=== PATIENT | male | born 1950 | race Caucasian/White ===

== ENCOUNTER 2017-05-12 20:43 | Observation (INO) | payer MEDICARE ==
[~2017-05-12] VITALS: Ht 172.7 cm; Wt 81.9 kg
[~2017-05-12 20:43] MED LIST: ASP81TEC PO; HYDR1TAB8 OP; METH4TAB PO; MILK1CAP2 PO; MULT-873 PO; Occuvite PO; Osteo Bi-Flex PO
--- OUTSIDE RECORDS SUMMARY | 2017-05-12 20:49 | XMS REPORT | Continuity of Care Document ---
Author Author [facility] Organization [facility] Address Unknown Phone Unavailable Allergies Active Description Code Type Severity Reaction Onset Reported/Identified Relationship to Patient Clinical Status Yes No Known Drug Allergies [id number] Drug Allergy Unknown N/A 03/29/2011 Medications There is no data. Problems Date Dx Coded Attending Type Code Diagnosis Diagnosed By 04/07/2014 LISA DEAN MD Ot 719.46 Procedures There is no data. Results There is no data. Encounters ACCT No. Visit Date/Time Discharge Status Pt. Type Provider Facility Loc./Unit Complaint [id number] 01/15/2014 12:59:00 01/15/2014 23:59:59 CLS Outpatient LISA DEAN MD [facility] RAD [id number] 05/12/2017 20:45:00 ACT Emergency PEPE OSBORNE, ADELSO Paulino [facility] ER POSS STROKE
[2017-05-12 21:16] LABS: BASOPHILS % (AUTO) 0 % (0-10); EOSINOPHILS # (AUTO) 0.2 10^3/uL (0.0-0.3); EOSINOPHILS % (AUTO) 2 % (0-10); HEMATOCRIT 41 % (40-54); HEMOGLOBIN 14.5 G/DL (13.3-17.7); LYMPHOCYTES # (AUTO) 3.1 X 10^3 (1.0-4.0); LYMPHOCYTES % (AUTO) 42 % (12-44); MEAN CORPUSCULAR HEMOGLOBIN 33 PG (25-34); MEAN CORPUSCULAR HGB CONC 35 G/DL (32-36); MEAN CORPUSCULAR VOLUME 94 FL (80-99); MEAN PLATELET VOLUME 9.2 FL (7.4-10.4); MONOCYTES # (AUTO) 0.8 X 10^3 (0.0-1.0); MONOCYTES % (AUTO) 11 % (0-12); NEUTROPHILS # (AUTO) 3.3 X 10^3 (1.8-7.8); NEUTROPHILS % (AUTO) 45 % (42-75); PLATELET COUNT 215 10^3/uL (130-400); RED BLOOD COUNT 4.38 10^6/uL (4.35-5.85); RED CELL DISTRIBUTION WIDTH 12.4 % (10.0-14.5); WHITE BLOOD COUNT 7.4 10^3/uL (4.3-11.0)
[2017-05-12 21:18] LABS: PROTHROMBIN TIME PATIENT 13.7 SEC (12.2-14.7)
[2017-05-12 21:20] LABS: FIBRIN DEGRADATION PRODUCTS 0.31 UG/ML (0.00-0.49)
--- NOTE | 2017-05-12 21:27 | ED Neurological Problem ---
General Chief Complaint: Neuro-Stroke Like Symptoms Stated Complaint: POSS STROKE Nursing Triage Note: PT REPORTS SLURRED SPEECH, L FACIAL NUMBNESS, AND FEELING LIKE HIS TONGUE IS SWELLING SINCE APPROX 1800 ON 05/11/17. PT REPORTS DIFFICULTY EATING. Nursing Sepsis Screen: No Definite Risk Source: patient Exam Limitations: no limitations History of Present Illness Date Seen by Provider: May 12, 2017 Time Seen by Provider: 20:55 Initial Comments Here with report of left-sided facial numbness and burning tongue weakness. Onset at 6 p.m. yesterday and symptoms continue. Denies weakness in his arms or legs. Has had a headache for the last 2 months. Had carotid artery ultrasound recently within the last week which showed good flow through the coronary artery and vertebral artery system. Does report some dizziness but is able to walk and stand without difficulty. Timing/Duration: 24 hours Severity: moderate Associated Symptoms: No confusion, No fever/chills, No muscle spasms, No nausea /vomiting, slurred speech, No trouble walking, weakness Allergies and Home Medications Allergies Coded Allergies: doxycycline (Verified Allergy, Unknown, 05/12/17) Home Medications Aspirin 81 Mg Tabec, 81 MG PO DAILY, (Reported) Hydrocodone Bit/Ibuprofen 1 Each Tablet, 1 EACH OP Q 4 - 6 HRS PRN, #14 Ref 0 Prescribed by: ADELSO CANTU on 04/25/12 1522 Methylprednisolone 4 Mg/Dose-Pack Tab.ds.pk, 0 PO UD, #1 Prescribed by: ADELSO CANTU on 04/25/12 1524 Multivitamins-Min/Fa/Ginkgo 1 Each Tablet, 1 TAB PO DAILY, (Reported) [Occuvite] , 1 TAB PO DAILY, (Reported) [Osteo Bi-Flex] , 1 TAB PO DAILY, (Reported) Constitutional: see HPI, No chills, No fever Eyes: No Symptoms Reported Ears, Nose, Mouth, Throat: see HPI, denies mouth pain, denies throat pain Respiratory: No cough, No short of breath Cardiovascular: no symptoms reported Gastrointestinal: no symptoms reported Genitourinary: no symptoms reported Musculoskeletal: see HPI Skin: no symptoms reported Psychiatric/Neurological: See HPI, Numbness, Weakness All Other Systems Reviewed Negative Unless Noted: Yes Past Jnkqlad-Sayeau-Lzyjou Hx Patient Social History Alcohol Use: Denies Use Recreational Drug Use: No Smoking Status: Never a Smoker 2nd Hand Smoke Exposure: No Recent Foreign Travel: No Contact w/Someone Who Travel: No Recent Infectious Disease Expo: No Recent Hopitalizations: No Immunizations Up To Date Date of Pneumonia Vaccine: Dec 10, 2011 Date of Influenza Vaccine: Dec 10, 2011 Seasonal Allergies Seasonal Allergies: No Surgeries History of Surgeries: Yes (L SHOULDER REPLACEMENT) Surgeries: Orthopedic Respiratory History of Respiratory Disorde: No Cardiovascular History of Cardiac Disorders: No (CLEAN HEART CATH IN 2011) Cardiac Disorders: Hypertension Neurological History of Neurological Disord: No Reproductive System Hx Reproductive Disorders: No Genitourinary History of Genitourinary Disor: No Gastrointestinal History of Gastrointestinal Di: No Musculoskeletal History of Musculoskeletal Dis: No Musculoskeletal Disorders: Degenerate Disk Disease Endocrine History of Endocrine Disorders: Yes Endocrine Disorders: Hypothyroidsim Cancer History of Cancer: No Psychosocial History of Psychiatric Problem: No Integumentary History of Skin or Integumenta: No Blood Transfusions History of Blood Disorders: No Adverse Reaction to a Blood Tr: No Reviewed Nursing Assessment Reviewed/Agree w Nursing PMH: Yes Family Medical History Significant Family History: No Pertinent Family Hx Physical Exam Vital Signs Vital Sign - Last 12Hours 05/12/17 20:43 Temp 97.2 Pulse 86 Resp 22 B/P (MAP) 145/87 (106) Pulse Ox 98 O2 Delivery Room Air Capillary Refill : Less Than 3 Seconds General Appearance: WD/WN, no apparent distress HEENT: PERRL/EOMI, TMs normal, pharynx normal Neck: full range of motion, supple Respiratory: lungs clear, normal breath sounds Cardiovascular: regular rate, rhythm, no murmur Gastrointestinal: non tender, soft Back: normal inspection, no CVA tenderness, no vertebral tenderness Extremities: non-tender, normal inspection Neurologic/Psychiatric: alert, oriented x 3 Crainal Nerves: normal hearing, facial droop (mild left sided), tongue deviation to R Coordination/Gait: normal finger to nose, normal gait Motor/Sensory: no motor deficit, no sensory deficit, no pronator drift Skin: normal color, warm/dry Stroke NIH Stroke Scale Assessment Level of Consciousness: 0=Alert (0), Level of Consciousness-Questions: 0= Answers both month/age (0), LOC Commands: 0=Performs both tasks (0), Visual Figueroa: 0=No visual loss (0), Facial Movement (Facial Paresis): 1=Minor paralysis (1), Motor Function-Arms Right: 0=No drift (0), Motor Function-Arms Left: 0=No drift (0), Motor Function-Legs Right: 0=No drift (0), Motor Function- Legs Left: 0=No drift (0), Limb Ataxia: 0=Absent (0), Sensory: 0=Normal:no loss (0), Best Language: 0=No aphasia (0), Dysarthria: 1=Mild to moderate loss (1), Extinction & Inattention: 0=No abnormality (0), Total: Progress/Results/Core Measures Results/Orders Lab Results Laboratory Tests Test 05/12/17 20:53 05/12/17 21:12 05/12/17 22:45 Range/Units White Blood Count 7.4 4.3-11.0 10^3/uL Red Blood Count 4.38 4.35-5.85 10^6/uL Hemoglobin 14.5 13.3-17.7 G/DL Hematocrit 41 40-54 % Mean Corpuscular Volume 94 80-99 FL Mean Corpuscular Hemoglobin 33 25-34 PG Mean Corpuscular Hemoglobin Concent 35 32-36 G/DL Red Cell Distribution Width 12.4 10.0-14.5 % Platelet Count 215 130-400 10^3/uL Mean Platelet Volume 9.2 7.4-10.4 FL Neutrophils (%) (Auto) 45 42-75 % Lymphocytes (%) (Auto) 42 12-44 % Monocytes (%) (Auto) 11 0-12 % Eosinophils (%) (Auto) 2 0-10 % Basophils (%) (Auto) 0 0-10 % Neutrophils # (Auto) 3.3 1.8-7.8 X 10^3 Lymphocytes # (Auto) 3.1 1.0-4.0 X 10^3 Monocytes # (Auto) 0.8 0.0-1.0 X 10^3 Eosinophils # (Auto) 0.2 0.0-0.3 10^3/uL Basophils # (Auto) 0.0 0.0-0.1 10^3/uL Prothrombin Time 13.7 12.2-14.7 SEC INR Comment 1.0 0.8-1.4 Activated Partial Thromboplast Time 27 24-35 SEC D-Dimer 0.31 0.00-0.49 UG/ML Sodium Level 138 135-145 MMOL/L Potassium Level 4.0 3.6-5.0 MMOL/L Chloride Level 106 98-107 MMOL/L Carbon Dioxide Level 20 L 21-32 MMOL/L Anion Gap 12 5-14 MMOL/L Blood Urea Nitrogen 18 7-18 MG/DL Creatinine 1.00 0.60-1.30 MG/DL Estimat Glomerular Filtration Rate > 60 BUN/Creatinine Ratio 18 Glucose Level 124 H 70-105 MG/DL Calcium Level 9.2 8.5-10.1 MG/DL Total Bilirubin 0.3 0.1-1.0 MG/DL Aspartate Amino Transf (AST/SGOT) 56 H 5-34 U/L Alanine Aminotransferase (ALT/SGPT) 128 H 0-55 U/L Alkaline Phosphatase 65 40-136 U/L Troponin I < 0.30 <0.30 NG/ML Total Protein 7.3 6.4-8.2 GM/DL Albumin 4.2 3.2-4.5 GM/DL Glucometer 118 H 70-110 MG/DL Urine Color YELLOW Urine Clarity CLEAR Urine pH 6 5-9 Urine Specific [place] 1.020 1.016-1.022 Urine Protein NEGATIVE NEGATIVE Urine Glucose (UA) NEGATIVE NEGATIVE Urine Ketones NEGATIVE NEGATIVE Urine Nitrite NEGATIVE NEGATIVE Urine Bilirubin NEGATIVE NEGATIVE Urine Urobilinogen NORMAL NORMAL MG/DL Urine Leukocyte Esterase NEGATIVE NEGATIVE Urine RBC (Auto) NEGATIVE NEGATIVE Urine RBC NONE /HPF Urine WBC 0-2 /HPF Urine Squamous Epithelial Cells 2-5 /HPF Urine Renal Epithelial Cells NONE /HPF Urine Crystals NONE /LPF Urine Bacteria NEGATIVE /HPF Urine Casts PRESENT /LPF Urine Hyaline Casts RARE /LPF Urine Mucus SMALL H /LPF Urine Culture Indicated NO My Orders Orders - ADELSO CANTU MD Cbc With Automated Diff (05/12/17 21:03) Protime With Inr (05/12/17 21:03) Partial Thromboplastin Time (05/12/17 21:03) Comprehensive Metabolic Panel (05/12/17 21:03) Fibrin Degradation Products (05/12/17 21:03) Troponin I (05/12/17 21:03) Ua Culture If Indicated (05/12/17 21:03) Chest 1 View, Ap/Pa Only (05/12/17 21:03) Ekg Tracing (05/12/17 21:03) Nothing By Mouth (05/13/17 Breakfast) Accucheck Stat ONCE (05/12/17 21:03) Saline Lock/Iv-Start (05/12/17 21:03) Vital Signs - Stroke Q15M (05/12/17 21:03) Ct Head Wo-R/O Stroke (05/12/17 21:03) O2 (05/12/17 21:03) Intake & Output 06,14,22 (05/12/17 21:03) Monitor-Rhythm Ecg Trace Only (05/12/17 21:03) Dysphagia Screening Tool (05/12/17 21:03) Vital Signs/I&O Vital Sign - Last 12Hours 05/12/17 20:43 Temp 97.2 Pulse 86 Resp 22 B/P (MAP) 145/87 (106) Pulse Ox 98 O2 Delivery Room Air Blood Pressure Mean: 106 Point of Care Testing Finger Stick Blood Glucose: 118 Blood Glucose Action Taken: physician notified Progress Note : Progress Note Seen and evaluated. Initial stroke screen shows core up to with very mild left facial droop and slightly slurred speech. Patient outside of TPA window tPA not indicated due to time frame. This was discussed with the patient and family who agree. IV, labs, EKG, chest x-ray, CT head ordered. Monitor patient. 2312: Labs, CT and evaluation reviewed. Patient to be admitted for further evaluation including MRI. He has already had carotid ultrasound and patient has results of that with him. He did pass dysphagia screen per nursing. Admit, observation status. Patient and family agree with plan. ECG Initial ECG Impression Date: May 12, 2017 Initial ECG Impression Time: 21:09 Initial ECG Rate: 77 Initial ECG Rhythm: Normal Sinus Comment Sinus rhythm with borderline T-wave abnormalities. No evidence of ST elevation HI. No previous available for comparison. Interpreted by me. Diagnostic Imaging Diagonstic Imaging: Xray Plain Films/CT/US/NM/MRI: chest Comments NAME: TOMASZ [facility]EN [facility] REC#: [id number] PT STATUS: REG ER : 1950 PHYSICIAN: ADELSO CANTU MD ADMIT DATE: 05/12/17/ER Signed Date of Exam: 05/12/17 CHEST 1 VIEW, AP/PA ONLY EXAMINATION: Portable erect AP chest at 0918 PM INDICATION: Slurred speech The heart size is within normal limits and stable when compared to 04/25/2012. The minimal scar formation in the left lung base seen previously is again evident and no different. There is no sign of failure, pneumonia or of a pleural effusion to indicate an acute abnormality. The mediastinum is not widened. The osseous structures are intact. The total shoulder prosthesis on the left seen previously is partially visualized on this exam. IMPRESSION: There is no evidence for an acute cardiopulmonary abnormality. Dictated by: Dictated on workstation # [id number] Dict: 05/12/172124 Trans: 05/12/172140 Interpreted by: KARTHIK ALVAREZ MD Electronically signed by: KARTHIK ALVAREZ MD 05/12/172140 Diagonstic Imaging: CT Plain Films/CT/US/NM/MRI: head Comments NAME: TOMASZ ROSEN [facility] REC#: [id number] PT STATUS: REG ER : 1950 PHYSICIAN: ADELSO CANTU MD ADMIT DATE: 05/12/17/ER Signed Date of Exam: 05/12/17 CT HEAD WO-R/O STROKE INDICATION: Slurred speech. EXAMINATION: CT of the head without contrast. Contiguous axial sections were taken through the skull. FINDINGS: There is no mass, shift of the midline or hemorrhage to suggest an acute intracranial abnormality. The ventricles are not abnormally dilated and stable in size when compared to the prior exam of 04/25/2012. The vague areas of low density and the periventricular white matter seen on the prior study are again evident and do not seem to have changed significantly. These findings are nonspecific but may be related to encephalomalacia from microvascular ischemia. There is also cortical atrophy present. The degree of atrophy is consistent with the patient's age. The bone windows show no sign of a fracture or of a destructive lesion. The orbits are symmetrical and within normal limits. The sinuses, where visualized, are clear. IMPRESSION: 1. There is no evidence for an acute intracranial abnormality. 2. If clinical concern regarding an underlying abnormality persists, then MRI would be recommended for further study. Dictated by: Dictated on workstation # [id number] Dict: 05/12/172122 Trans: 05/12/172141 Interpreted by: KARTHIK ALVAREZ MD Electronically signed by: KARTHIK ALVAREZ MD 05/12/172141 Departure Communication (Admissions) Time/Spoke to Admitting Phy: 23:12 Impression Impression: Primary Impression: Cerebrovascular accident due to cerebral artery occlusion Disposition: ADMITTED INPATIENT Condition: Stable Admissions Decision to Admit Reason: Admit from ER (General) Decision to Admit/Date: May 12, 2017 Time/Decision to Admit Time: 23:12 Departure-Patient Inst. Referrals: LISA DEAN MD (PCP/Family) Primary Care Physician ADELSO CANTU MD May 12, 2017 21:27
--- NOTE | 2017-05-12 21:32 | Diagnostic Imaging Report ---
EXAMINATION: Portable erect AP chest at 0918 PM INDICATION: Slurred speech The heart size is within normal limits and stable when compared to 04/25/2012. The minimal scar formation in the left lung base seen previously is again evident and no different. There is no sign of failure, pneumonia or of a pleural effusion to indicate an acute abnormality. The mediastinum is not widened. The osseous structures are intact. The total shoulder prosthesis on the left seen previously is partially visualized on this exam. IMPRESSION: There is no evidence for an acute cardiopulmonary abnormality. Dictated by: Dictated on workstation # [id number]
--- NOTE | 2017-05-12 21:39 | Diagnostic Imaging Report ---
INDICATION: Slurred speech. EXAMINATION: CT of the head without contrast. Contiguous axial sections were taken through the skull. FINDINGS: There is no mass, shift of the midline or hemorrhage to suggest an acute intracranial abnormality. The ventricles are not abnormally dilated and stable in size when compared to the prior exam of 04/25/2012. The vague areas of low density and the periventricular white matter seen on the prior study are again evident and do not seem to have changed significantly. These findings are nonspecific but may be related to encephalomalacia from microvascular ischemia. There is also cortical atrophy present. The degree of atrophy is consistent with the patient's age. The bone windows show no sign of a fracture or of a destructive lesion. The orbits are symmetrical and within normal limits. The sinuses, where visualized, are clear. IMPRESSION: 1. There is no evidence for an acute intracranial abnormality. 2. If clinical concern regarding an underlying abnormality persists, then MRI would be recommended for further study. Dictated by: Dictated on workstation # [id number]
[2017-05-12 21:44] LABS: ALANINE AMINOTRANSFERASE 128 U/L (0-55); ALBUMIN 4.2 GM/DL (3.2-4.5); ALKALINE PHOSPHATASE 65 U/L (40-136); BILIRUBIN,TOTAL 0.3 MG/DL (0.1-1.0); BUN/CREATININE RATIO 18; CALCIUM 9.2 MG/DL (8.5-10.1); CARBON DIOXIDE 20 MMOL/L (21-32); CHLORIDE 106 MMOL/L (98-107); GFR ESTIMATED > 60; GLUCOSE 124 MG/DL (70-105); SODIUM 138 MMOL/L (135-145); TOTAL PROTEIN 7.3 GM/DL (6.4-8.2)
[2017-05-12 23:04] LABS: BILIRUBIN,URINE NEGATIVE (NEGATIVE); CLARITY,URINE CLEAR; COLOR,URINE YELLOW; GLUCOSE, URINE (UA) NEGATIVE (NEGATIVE); KETONES,URINE NEGATIVE (NEGATIVE); LEUKOCYTE ESTERASE ,URINE NEGATIVE (NEGATIVE); NITRITE,URINE NEGATIVE (NEGATIVE); PH,URINE 6 (5-9); PROTEIN,URINE NEGATIVE (NEGATIVE); UROBILINOGEN,URINE NORMAL (NORMAL)
[2017-05-12 23:05] LABS: BACTERIA,URINE NEGATIVE /HPF; HYALINE CASTS, URINE RARE /LPF; WBC,URINE 0-2 /HPF
--- OUTSIDE RECORDS SUMMARY | 2017-05-12 23:31 | XMS REPORT | Continuity of Care Document ---
Author Author [facility] Organization [facility] Address Unknown Phone Unavailable Allergies Active Description Code Type Severity Reaction Onset Reported/Identified Relationship to Patient Clinical Status Yes No Known Drug Allergies [id number] Drug Allergy Unknown N/A 03/29/2011 Yes doxycycline [id number] Drug Allergy Unknown N/A 05/12/2017 Medications There is no data. Problems Date Dx Coded Attending Type Code Diagnosis Diagnosed By 04/07/2014 DIANNE OSBORNE, LISA White Ot 719.46 Procedures There is no data. Results Test Result Range Complete blood count (CBC) with automated white blood cell (WBC) differential - 05/12/17 20:53 Blood leukocytes automated count (number/volume) 7.4 10*3/uL 4.3-11.0 Blood erythrocytes automated count (number/volume) 4.38 10*6/uL 4.35-5.85 Venous blood hemoglobin measurement (mass/volume) 14.5 g/dL 13.3-17.7 Blood hematocrit (volume fraction) 41 % 40-54 Automated erythrocyte mean corpuscular volume 94 [foz_us] 80-99 Automated erythrocyte mean corpuscular hemoglobin (mass per erythrocyte) 33 pg 25-34 Automated erythrocyte mean corpuscular hemoglobin concentration measurement ( mass/volume) 35 g/dL 32-36 Automated erythrocyte distribution width ratio 12.4 % 10.0-14.5 Automated blood platelet count (count/volume) 215 10*3/uL 130-400 Automated blood platelet mean volume measurement 9.2 [foz_us] 7.4-10.4 Automated blood neutrophils/100 leukocytes 45 % 42-75 Automated blood lymphocytes/100 leukocytes 42 % 12-44 Blood monocytes/100 leukocytes 11 % 0-12 Automated blood eosinophils/100 leukocytes 2 % 0-10 Automated blood basophils/100 leukocytes 0 % 0-10 Blood neutrophils automated count (number/volume) 3.3 10*3 1.8-7.8 Blood lymphocytes automated count (number/volume) 3.1 10*3 1.0-4.0 Blood monocytes automated count (number/volume) 0.8 10*3 0.0-1.0 Automated eosinophil count 0.2 10*3/uL 0.0-0.3 Automated blood basophil count (count/volume) 0.0 10*3/uL 0.0-0.1 PT panel in platelet poor plasma by coagulation assay - 05/12/17 20:53 Prothrombin time (PT) in platelet poor plasma by coagulation assay 13.7 s 12.2-14.7 INR in platelet poor plasma or blood by coagulation assay 1.0 0.8-1.4 Activated partial thromboplastin time (aPTT) in platelet poor plasma bycoagulation assay - 05/12/17 20:53 Activated partial thromboplastin time (aPTT) in platelet poor plasma bycoagulation assay 27 s 24-35 Fibrin D-dimer FEU measurement in platelet poor plasma (mass/volume) - 20:53 Fibrin D-dimer FEU measurement in platelet poor plasma (mass/volume) 0.31 ug/mL 0.00-0.49 Comprehensive metabolic panel - 05/12/17 20:53 Serum or plasma sodium measurement (moles/volume) 138 mmol/L 135-145 Serum or plasma potassium measurement (moles/volume) 4.0 mmol/L 3.6-5.0 Serum or plasma chloride measurement (moles/volume) 106 mmol/L 98-107 Carbon dioxide 20 mmol/L 21-32 Serum or plasma anion gap determination (moles/volume) 12 mmol/L 5-14 Serum or plasma urea nitrogen measurement (mass/volume) 18 mg/dL 7-18 Serum or plasma creatinine measurement (mass/volume) 1.00 mg/dL 0.60-1.30 Serum or plasma urea nitrogen/creatinine mass ratio 18 NRG Serum or plasma creatinine measurement with calculation of estimated glomerular filtration rate > NRG Serum or plasma glucose measurement (mass/volume) 124 mg/dL 70-105 Serum or plasma calcium measurement (mass/volume) 9.2 mg/dL 8.5-10.1 Serum or plasma total bilirubin measurement (mass/volume) 0.3 mg/dL 0.1-1.0 Serum or plasma alkaline phosphatase measurement (enzymatic activity/volume) 65 U/L 40-136 Serum or plasma aspartate aminotransferase measurement (enzymatic activity/ volume) 56 U/L 5-34 Serum or plasma alanine aminotransferase measurement (enzymatic activity/volume ) 128 U/L 0-55 Serum or plasma protein measurement (mass/volume) 7.3 g/dL 6.4-8.2 Serum or plasma albumin measurement (mass/volume) 4.2 g/dL 3.2-4.5 Serum or plasma troponin i.cardiac measurement (mass/volume) - 05/12/17 20:53 Serum or plasma troponin i.cardiac measurement (mass/volume) < ng/ mL <0.30 Capillary blood glucose measurement by glucometer (mass/volume) - 05/12/17 21: 12 Capillary blood glucose measurement by glucometer (mass/volume) 118 mg/dL 70-110 Complete urinalysis with reflex to culture - 05/12/17 22:45 Urine color determination YELLOW NRG Urine clarity determination CLEAR NRG Urine pH measurement by test strip 6 5-9 Specific gravity of urine by test strip 1.020 1.016- 1.022 Urine protein assay by test strip, semi-quantitative NEGATIVE NEGATIVE Urine glucose detection by automated test strip NEGATIVE NEGATIVE Erythrocytes detection in urine sediment by light microscopy NEGATIVE NEGATIVE Urine ketones detection by automated test strip NEGATIVE NEGATIVE Urine nitrite detection by test strip NEGATIVE NEGATIVE Urine total bilirubin detection by test strip NEGATIVE NEGATIVE Urine urobilinogen measurement by automated test strip (mass/volume) NORMAL NORMAL Urine leukocyte esterase detection by dipstick NEGATIVE NEGATIVE Automated urine sediment erythrocyte count by microscopy (number/high power field) NONE NRG Automated urine sediment leukocyte count by microscopy (number/high power field ) [HPF] NRG Bacteria detection in urine sediment by light microscopy NEGATIVE NRG Squamous epithelial cells detection in urine sediment by light microscopy 2-5 NRG Crystals detection in urine sediment by light microscopy NONE NRG Casts detection in urine sediment by light microscopy PRESENT NRG Mucus detection in urine sediment by light microscopy SMALL NRG Complete urinalysis with reflex to culture NO NRG Hyaline casts detection in urine sediment by light microscopy RARE NRG Renal epithelial cells detection in urine sediment by light microscopy NONE NRG Encounters ACCT No. Visit Date/Time Discharge Status Pt. Type Provider Facility Loc./Unit Complaint [id number] 01/15/2014 12:59:00 01/15/2014 23:59:59 CLS Outpatient DIANNE OSBORNE, LISA White [facility] [id number] 05/12/2017 23:16:00 ACT Inpatient KAYLIE COSTA DO [facility] 4TH CVA WITH LEFT FACIAL INVOLVEMENT
[2017-05-13 00:15] VITALS: BP 124/74
[2017-05-13] MEDS ORDERED: ONDANSETRON 4 MG/2 ML (SDV) Z0FRAN IVP PRN (01:30)
[2017-05-13] MEDS ORDERED: NS IV 1000 ML 1,000 ML IV SCH (01:30)
[2017-05-13 03:57] VITALS: BP 119/64
[2017-05-13 06:26] LABS: BASOPHILS % (AUTO) 1 % (0-10); EOSINOPHILS # (AUTO) 0.2 10^3/uL (0.0-0.3); EOSINOPHILS % (AUTO) 3 % (0-10); HEMATOCRIT 40 % (40-54); HEMOGLOBIN 14.1 G/DL (13.3-17.7); LYMPHOCYTES # (AUTO) 2.7 X 10^3 (1.0-4.0); LYMPHOCYTES % (AUTO) 41 % (12-44); MEAN CORPUSCULAR HEMOGLOBIN 34 PG (25-34); MEAN CORPUSCULAR HGB CONC 35 G/DL (32-36); MEAN CORPUSCULAR VOLUME 95 FL (80-99); MEAN PLATELET VOLUME 9.1 FL (7.4-10.4); MONOCYTES # (AUTO) 0.7 X 10^3 (0.0-1.0); MONOCYTES % (AUTO) 10 % (0-12); NEUTROPHILS % (AUTO) 45 % (42-75); PLATELET COUNT 192 10^3/uL (130-400); RED CELL DISTRIBUTION WIDTH 12.4 % (10.0-14.5); WHITE BLOOD COUNT 6.5 10^3/uL (4.3-11.0)
[2017-05-13] MEDS ORDERED: INFLUENZA TRIvalent 2017-2018 0.5 ML/45 MCG SYR IM ONE (07:00)
[2017-05-13 07:05] LABS: ALANINE AMINOTRANSFERASE 115 U/L (0-55); ALBUMIN 3.9 GM/DL (3.2-4.5); ALKALINE PHOSPHATASE 57 U/L (40-136); BILIRUBIN,TOTAL 0.5 MG/DL (0.1-1.0); BUN/CREATININE RATIO 20; CALCIUM 8.9 MG/DL (8.5-10.1); CARBON DIOXIDE 21 MMOL/L (21-32); CHLORIDE 106 MMOL/L (98-107); CREATININE SERUM 0.85 MG/DL (0.60-1.30); GFR ESTIMATED > 60; GLUCOSE 97 MG/DL (70-105); POTASSIUM 4.5 MMOL/L (3.6-5.0); SODIUM 138 MMOL/L (135-145); TOTAL PROTEIN 6.7 GM/DL (6.4-8.2)
[2017-05-13 08:00] VITALS: BP 121/71
[2017-05-13] MEDS ORDERED: ASPI-983 PO (09:16)
[2017-05-13] MEDS ORDERED: LEVO50TA6 PO (09:16)
[2017-05-13] MEDS ORDERED: LISI10TA2 PO (09:16)
[2017-05-13] MEDS ORDERED: TIZA2TAB3 PO (09:16)
[2017-05-13] MEDS ORDERED: HYDR-3820 PO (09:25)
[2017-05-13] MEDS ORDERED: CYCL10TA9 PO (09:25)
--- NOTE | 2017-05-13 10:51 | Diagnostic Imaging Report ---
PROCEDURE: MR imaging of the brain without contrast. TECHNIQUE: Multiplanar, multisequence MR imaging of the brain was performed without contrast. INDICATION: Headaches. COMPARISON: CT head without contrast 05/12/2017. FINDINGS: Moderate generalized cerebral and cerebellar parenchymal volume loss. Moderate confluent periventricular T2 hyperintensities are greatest in the frontal lobes bilaterally. No other abnormal intracranial signal, restricted water diffusion, or hemosiderin deposition. Normal morphology including the major midline structures, sella, cerebellopontine angle, and posterior fossa. The orbits are unremarkable on this non-dedicated exam. Normal intracranial flow voids. No hydrocephalus or extra-axial fluid collections. The paranasal sinuses and mastoids are clear. Normal bone marrow signal. IMPRESSION: 1. Age-appropriate generalized cerebral and cerebellar parenchymal volume loss. 2. Confluent nonspecific T2 hyperintensities most likely representing chronic small vessel ischemic change. 3. No acute intracranial MRI findings. Dictated by: Dictated on workstation # [id number]
[2017-05-13 12:00] VITALS: BP 121/69
--- NOTE | 2017-05-13 12:46 | ST Dysphagia Evaluation ---
Speech Evaluation-General Medical Diagnosis Suspected CVA Onset Date: May 12, 2017 Therapy Diagnosis Therapy Diagnosis: Mild Oral Dysphagia Precautions Precautions/Isolations: Standard Precautions Referral Referring Physician: Dr. Holly Schwab Reason for Referral: Evaluation/Treatment Clinical Bedside Swallowing Evaluation Medical History Pertinent Medical History: HTN, Hypothroidism Current History The patient reported slight slurring of speech and drooling from the left side of his face on Friday, May 12, 2017. Reviewed History: Yes Speech PLF/Current-Dysphagia Prior Level of Function The patient denied prior challenges with swallowing, stating he consumes a regular diet with thin liquids at home without any signs/symptoms of aspiration. Subjective The patient was seated upright in bed, with his at bedside. The patient greeted the clinician appropriately and was agreeable to participation in the dysphagia evaluation. Cognitive Status Patient Orientation: Person, Place, Time, Situation Oral Motor Skills Dentition: Natural Denture Type: Full- Upper & Lower Current Food Consistancy: Regular, Thin Liquids Ability to Follow Directions: Excellent Oral Expression Ability: No Impairment Voice Voice Phonatory-Based Quality: Normal Voice Pitch: Normal Voice Loudness: Normal Face Facial Symmetry: Asymmetrical (Minimally, asymmetrical (left droop)) Oral-Facial Assessment Oral-Facial Dentition: Normal Labial Seal Description: Droops Left Smile: Droops Left Puff Cheeks: Reduced Strength (Left) Lingual Protrusion: Abnormal (Left deviation.) Lingual ROM: Abnormal (Reduced left lateral ROM (minimal)) Lingual Strength: Abnormal (Minimally reduced left lingual strength.) Pharynx Velopharyngeal Move.: Normal Volitional Dry Swallow: Yes Voluntary Cough: Yes Can Clear Throat Volitionally: Yes Productive Cough: Yes Productive Throat Clear: Yes Dysphagia Evaluation Consistencies Presented: Regular, Thin Liquid, Pureed Oral Phase: Left Pocketing Mild left oral pocketing was noted with puree and solid consistencies. The patient was able to clear the residue with a subsequent thin liquid wash and lingual sweep. No pharyngeal impairments were noted throughout the evaluation. - No signs/symptoms of aspiration were demonstrated with multiple boluses of thin liquid, puree, and solid. The patient's vocal quality remained clear throughout all trials. Dietary Recommendations: Regular Liquid Recommendations: Thin Swallowing Precautions: Alternate Liquids/Solids, Pocketing, Small Bites and Sips, Sitting Upright 90 Degrees, Left Tongue Sweep Dysphagia Evaluation Summary The patient demonstrated mild oral dysphagia characterized by reduced lingual strength and range of motion. Speech-Plan Treatment Plan Speech Therapy Treatment Plan: Discontinue ST Evaluation, only. Skilled services not warranted. Frequency: 1 time per week Estimated Hrs Per Day: Other Rehab Potential: Good Safety Risks/Education Teaching Recipient: Patient, Significant Other Teaching Methods: Discussion Response to Teaching: Verbalize Understanding Education Topics Provided: Rseults, Recommendations, Signs/Symptoms of Aspiration, Swallowing Strategies Time Speech Therapy Time In: 09:15 Speech Therapy Time Out: 09:30 Total Billed Time: 15 Billed Treatment Time 1, DYSEVS Speech GCodes Complexity Level Test(s)/Tool Used to Determine: Level of Assistance Scale Functional Limitation-Current Current: MELINDAALCNEVIN Modifier: CI Functional Limitation-Goal Goal: SWALGOAL Modifier: CI Functional Limitation-D/C Discharge: [facility] Modifier: CI PRAMOD HUITRON May 13, 2017 12:45
[2017-05-13] MEDS ORDERED: ASPIRIN 325 MG (5 GR) TABLET PO SCH (13:15)
--- NOTE | 2017-05-13 13:40 | Consultation-Cardiology ---
HPI-Cardiology Cardiology Consultation: Date of Consultation 05/13/17 Date of Admission Attending Physician Holly Schwab DO Admitting Physician Hank Ken MD Consulting Physician Valentino MUNGUIA MD HPI: Time Seen by Provider: 14:20 Chief Complaint: dizziness, tachycardia This is a 66 year old gentleman who has possible history of TIA and HTN. He presents with stroke like symptoms which resolved. He has been complaining of dizziness, headache and fast heart beating. he denies chest pain, shortness of breath, syncope or near syncope. He had a Coronary angiography a few years ago which was normal according to the patient. Review of Systems-Cardiology Review of Systems Constitutional: No As described under HPI, No no symptoms reported, No chills, No fever, lightheadedness, No malaise, No tiredness, No weight loss, No weight gain, No other Eyes: No As described under HPI, No no symptoms reported, No blindness, No blurred vision, No contact lenses, No drainage, No decreased acuity, No foreign body sensation, No glasses, No inflammation, No pain, No photophobia, No previous injury, No shadows, No tunnel vision, No other, No vision change Ears/Nose/Throat: No As described under HPI, No no symptoms reported, No chronic hearing loss, No epistaxis, No ear discharge, No ear pain, No loose teeth, No mouth pain, No mouth swelling, No nasal drainage, No nose pain, No recent hearing loss, No throat pain, No throat swelling, No ulcerations, No other Respiratory: No no symptoms reported, No As described under HPI, No cough, No orthopnea, No shortness of breath, No SOB with excertion, No SOB at rest, No stridor, No wheezing, No other Cardiovascular: lightheadedness, palpitations Gastrointestinal: No no symptoms reported, No As described under HPI, No abdomen distended, No abdominal pain, No blood streaked bowels, No constipation , No diarrhea, No difficulty swallowing, No nausea, No poor appetite, No poor fluid intake, No rectal bleeding, No vomiting, No other, No nausea/vomiting/ diarrhea, No stool coloration changes Genitourinary: No no symptoms reported, No As described under HPI, No burning, No dysuria, No discharge, No frequency, No flank pain, No hematuria, No incontinence, No pain, No urgency, No other, No urine frequency changes, No urine coloration changes Musculoskeletal: No no symptoms reported, No As describe under HPI, No back pain, No gout, No joint pain, No joint swelling, No muscle pain, No muscle stiffness, No neck pain, No other Skin: No no symptoms reported, No As described under HPI, No change in color, No change in hair/nails, No dryness, No lesions, No lumps, No rash, No other, No skin related problems, No ulcerations, No rash on exposed areas, No ulcerations on exposed areas Psychiatric/Neurological: As described under HPI All Other Systems Reviewed Negative Unless Noted: Yes PTY-Ehobvi-Ccbbjq Hx Patient Social History Alcohol Use: Denies Use Recreational Drug Use: No Smoking Status: Never a Smoker 2nd Hand Smoke Exposure: No Recent Foreign Travel: No Recent Infectious Disease Expo: Yes (sinus and ear infection, finished meds 3 days ago) Hospitalization with Isolation: Denies Physical Abuse Screen: No Sexual Abuse: No Immunizations Up To Date Date of Pneumonia Vaccine: Dec 10, 2011 Date of Influenza Vaccine: Dec 10, 2011 Past Medical History PMH As described under Assessment. Allergies and Home Medications Allergies Coded Allergies: doxycycline (Verified Allergy, Unknown, 05/12/17) Home Medications Aspirin 81 Mg Tablet.dr, 81 MG PO DAILY, (Reported) Atorvastatin Calcium 40 Mg Tablet, 40 MG PO HS, #30 Prescribed by: GRETCHEN SELBY on 05/13/17 1418 Cyclobenzaprine HCl 10 Mg Tablet, 10 MG PO TID PRN for MUSCLE SPASMS, (Reported) Hydrocodone/Acetaminophen 1 Each Tablet, 1 TAB PO BID PRN for PAIN-MODERATE, ( Reported) Levothyroxine Sodium 50 Mcg Tablet, 50 MCG PO DAILY, (Reported) Lisinopril 10 Mg Tablet, 10 MG PO BID, (Reported) Tizanidine HCl 2 Mg Tablet, 2-4 MG PO HS PRN for MUSCLE SPASMS/SLEEP, (Reported) Physical Exam-Cardiology Physical Exam Vital Signs/I&O Vital Sign - Last 12Hours 05/13/17 05/13/17 05/13/17 05/13/17 03:57 08:00 08:00 12:00 Temp 99.7 97.8 97.1 Pulse 54 79 77 Resp B/P (MAP) 119/64 (82) 121/71 (88) 121/69 (86) Pulse Ox 96 96 93 95 O2 Delivery Room Air Room Air Room Air Room Air 05/13/17 13:26 Temp 97.1 Capillary Refill : Less Than 3 Seconds Constitutional: appears stated age, No apparent distress, well-developed, well- nourished HEENT: PERRL, No discharge, hearing is well preserved, oral hygience is good, No ulceration, No xanthelasmas are seen Neck: No carotid bruit, carotid pulses are 2 + bilaterally Respiratory: chest is bilaterally symmetric, lungs clear to percussion, lungs clear to auscultation Cardiovascular: regular rate-rhythm, No irregularly irregular, No extra beats, No parasternal heave is noted, No JVD, No edema, No bradycardia, No tachycardia , No point of maximal impulse, No cardiac thrills are palpable, S1 and S2, No gallop/S3, No gallop/S4, No diastolic murmur, No systolic murmur, No friction rub, No click, No other Gastrointestinal: No tender, No soft, No round, No distended, No pulsatile mass , No organomegaly, No guarding, No rebound, No tenderness, No hernia, No mass, No audible bowel sounds, No abnormal bowel sounds, No abdominal bruits, No spleenomegaly, No other Rectal: deferred Extremities: No normal range of motion, No non-tender, No normal inspection, No pedal edema, No calf tenderness, No normal capillary refill, No pelvis stable , No calf tenderness, No inflammation, No pedal edema, No slow capillary refill , No swelling, No other, No abrasion, No clubbing, No cyanosis, No ecchymosis, No laceration, No no lower extremity edema bilateral, No significant edema, No tenderness, No wound Neurologic/Psychiatric: No vc++ developer II-XII nml as tested, No no motor/sensory deficits, No alert, No normal mood/affect, No oriented x 3, No abnormal cerebellar tests, No abnormal vc++ developer II-XII, No abnormal gait, No aphasia, No EOM palsy, No facial droop, No motor weakness, No sensory deficit, No depressed affect, No disoriented x 3, No other, No grossly intact, No power is 5/5 both on sides Skin: No normal color, No warm/dry, No cyanosis, No cool, No diaphoresis, No damp, No ecchymosis, No jaundice, No mottled, No pallor, No rash, No tattoos/ piercings, No ulcerations, No rash on exposed areas, No ulcerations on exposed areas, No other Data Review Labs Laboratory Tests 05/12/17 20:53: White Blood Count 7.4, Red Blood Count 4.38, Hemoglobin 14.5, Hematocrit 41, Mean Corpuscular Volume 94, Mean Corpuscular Hemoglobin 33, Mean Corpuscular Hemoglobin Concent 35, Red Cell Distribution Width 12.4, Platelet Count 215, Mean Platelet Volume 9.2, Neutrophils (%) (Auto) 45, Lymphocytes (%) (Auto) 42, Monocytes (%) (Auto) 11, Eosinophils (%) (Auto) 2, Basophils (%) (Auto) 0, Neutrophils # (Auto) 3.3, Lymphocytes # (Auto) 3.1, Monocytes # (Auto) 0.8, Eosinophils # (Auto) 0.2, Basophils # (Auto) 0.0, Prothrombin Time 13.7, INR Comment 1.0, Activated Partial Thromboplast Time 27, D-Dimer 0.31, Sodium Level 138, Potassium Level 4.0, Chloride Level 106, Carbon Dioxide Level 20L, Anion Gap 12, Blood Urea Nitrogen 18, Creatinine 1.00, Estimat Glomerular Filtration Rate > 60, BUN/Creatinine Ratio 18, Glucose Level 124H, Calcium Level 9.2, Total Bilirubin 0.3, Aspartate Amino Transf (AST/SGOT) 56H, Alanine Aminotransferase (ALT/SGPT) 128H, Alkaline Phosphatase 65, Troponin I < 0.30, Total Protein 7.3, Albumin 4.2 05/12/17 21:12: Glucometer 118H 05/12/17 22:45: Urine Color YELLOW, Urine Clarity CLEAR, Urine pH 6, Urine Specific [place] 1.020, Urine Protein NEGATIVE, Urine Glucose (UA) NEGATIVE, Urine Ketones NEGATIVE, Urine Nitrite NEGATIVE, Urine Bilirubin NEGATIVE, Urine Urobilinogen NORMAL, Urine Leukocyte Esterase NEGATIVE, Urine RBC (Auto) NEGATIVE, Urine RBC NONE, Urine WBC 0-2, Urine Squamous Epithelial Cells 2-5, Urine Renal Epithelial Cells NONE, Urine Crystals NONE, Urine Bacteria NEGATIVE, Urine Casts PRESENT, Urine Hyaline Casts RARE, Urine Mucus SMALLH, Urine Culture Indicated NO 05/13/17 06:10: White Blood Count 6.5, Red Blood Count 4.20L, Hemoglobin 14.1, Hematocrit 40, Mean Corpuscular Volume 95, Mean Corpuscular Hemoglobin 34, Mean Corpuscular Hemoglobin Concent 35, Red Cell Distribution Width 12.4, Platelet Count 192, Mean Platelet Volume 9.1, Neutrophils (%) (Auto) 45, Lymphocytes (%) (Auto) 41, Monocytes (%) (Auto) 10, Eosinophils (%) (Auto) 3, Basophils (%) (Auto) 1, Neutrophils # (Auto) 3.0, Lymphocytes # (Auto) 2.7, Monocytes # (Auto) 0.7, Eosinophils # (Auto) 0.2, Basophils # (Auto) 0.0, Sodium Level 138, Potassium Level 4.5, Chloride Level 106, Carbon Dioxide Level 21, Anion Gap 11, Blood Urea Nitrogen 17, Creatinine 0.85, Estimat Glomerular Filtration Rate > 60, BUN/ Creatinine Ratio 20, Glucose Level 97, Calcium Level 8.9, Total Bilirubin 0.5, Aspartate Amino Transf (AST/SGOT) 50H, Alanine Aminotransferase (ALT/SGPT) 115H , Alkaline Phosphatase 57, Total Protein 6.7, Albumin 3.9, Triglycerides Level 86, Cholesterol Level 160, LDL Cholesterol Direct 109, VLDL Cholesterol 17, HDL Cholesterol 41, Thyroid Stimulating Hormone (TSH) 3.99 ECG Impression ECG Initial ECG Rhythm: Normal Sinus Initial ECG Impression: Normal A/P-Cardiology Assessment/Admission Diagnosis ? TIA, Palpitations, Dizziness, Tachycardia, HTN Plan ? TIA : defer to primary team. Palpitations, tachycardia, dizziness: will need holter 48 hours and event monitor x 30 days. I discussed at length with that patient about my concern of atrial fibrillation and association with TIA. I gave the patient and two options - first, is that we start Eliquis for stroke prevention and do monitoring for AF, if we do not find any AF, we discontinue eliquis and start aspirin. Second option is to start Aspirin and continue monitoring to see if the patient develops atrial fibrillation and then start Eliquis. The patient and went with the first choice, understanding the bleeding risks associated with eliquis. HTN; on lisinopril. BP well controlled in hospital. defer to primary care physician. I am happy to see him as an outpatient in six weeks once the holter and event monitor are completed. Thank you for your consultation. Please call me if you have any questions. Angie Munguia MD, FACP, FACC, FSCAI, FHRS, CCDS Interventional Cardiology Cardiac Electrophysiology Vascular Medicine and Endovascular Interventions Clinical Quality Measures DVT/VTE Risk/Contraindication: Risk Factor Score Per Nursin RFS Level Per Nursing on Admit: 4+=Very High Stroke: Date of last known well: May 11, 2017 Valentino MUNGUIA MD May 13, 2017 1:40 pm
--- NOTE | 2017-05-13 13:45 | Physical Therapy Evaluation ---
PT Evaluation-General Medical Diagnosis Admission Date May 12, 2017 at 23:16 Medical Diagnosis: Suspected CVA Onset Date: May 12, 2017 Therapy Diagnosis Therapy Diagnosis: generalized weakness/debility Height/Weight Height (Feet): 5 Height (Inches): 8.00 Weight (Pounds): 180 Weight (Ounces): 9.0 Precautions Precautions/Isolations: Standard Precautions Weight Bear Status Right Lower Extremity: Right Weight Bearing/Tolerated Left Lower Extremity: Left Weight Bearing/Tolerated Referral Physician: David Reason for Referral: Evaluation/Treatment Medical History Pertinent Medical History: HTN, Hypothroidism Current History RAMÍREZ x 2 months, slurred speech, left facial numbness Reviewed History: Yes Social History Home: Single Level Current Living Status: Spouse Prior/Core FIM Prior Level of Function Functional Gage Measure 0=Not Assessed/NA 4=Minimal Assistance 1=Total Assistance 5=Supervision or Setup 2=Maximal Assistance 6=Modified Gage 3=Moderate Assistance 7=Complete Gage Bed Mobility: 7 Transfers (B,C,W/C) (FIM): 7 Gait: 7 Locomotion: 7 PT Evaluation-Current Subjective Patient agrees to PT. Pain Numeric Pain Scale: 5-Moderate Pain Location Body Site: Head Pain Description: Ache, Pressure Objective Patient Orientation: Normal For Age Problem Solving: Good Attachments: IV ROM/Strength ROM Lower Extremities bilateral LE wNL Strength Lower Extremities bilateral LE WNL Integumentary/Posture Integumentary refer to nursing notes Bowel Incontinence: No Bladder Incontinence: No Posture erect Neuromuscular (Tone, Coordination, Reflexes) grossly intact Sensory Vision: Functional Hearing: Functional Sensation Right Lower Extremit: Intact Sensation Left Lower Extremity: Intact Transfers Functional Gage Measure 0=Not Assessed/NA 4=Minimal Assistance 1=Total Assistance 5=Supervision or Setup 2=Maximal Assistance 6=Modified Gage 3=Moderate Assistance 7=Complete Gage Transfers (B, C, W/C) (FIM): 7 Scootin Rollin Supine to/from Sit: 7 Sit to/from Stand: 7 Gait Mode of Locomotion: Walk Anticipated Mode of Locomotion: Walk Gait (FIM): 7 Distance (FIM): 3=150 ft Distance: 400' Gait Level of Assist: 7 Gait Assistive Device: None Comments/Gait Description safe and functional Balance Sitting Static: Normal Sitting Dynamic: Normal Standing Static: Normal Standing Dynamic: Normal Assessment/Needs 66 y.o. male., currently at [facility] with all gross motor skills and does not require skilled PT intervention. Rehab Potential: Good PT Plan Treatment/Plan Treatment Plan: Discontinue PT, goals met Treatment Plan: Other Treatment Duration: May 13, 2017 Frequency: 1 time per week Estimated Hrs Per Day: .25 hour per day Patient and/or Family Agrees t: Yes Time/GCodes Time In: 1300 Time Out: 1315 Total Billed Treatment Time: 15 Total Billed Treatment 1 visit EVLowC 15 min G Codes Necessary: Yes PT/OT Therapy GCodes Therapy Functional Limitation: Physical Therapy Test(s)/Tool used to determine: Level of Assistance Scale Functional Limitation-Current Charge Code: MOBCUR Modifier: CH Functional Limitation-Goal Charge Code: MOBGOAL Modifier: CH Functional Limitation-D/C Charge Codes: MOBDC Modifier: CH HONG VILLEGAS PT May 13, 2017 13:45
[2017-05-13 14:10] LABS: CHOLESTEROL 160 MG/DL (< 200); HDL CHOLESTEROL 41 MG/DL (40-60); TRIGLYCERIDES 86 MG/DL (<150); VLDL CHOLESTEROL 17 MG/DL (5-40)
[2017-05-13] MEDS ORDERED: ATOR40TA PO (14:18)
--- NOTE | 2017-05-13 14:19 | Short Stay Summary-Hospitalist ---
HPI History of Present Illness: HPI/Chief Complaint Pt is a 66yoM with a PMH of HLD who presented to the ER with CC of slurred speech. This started on 05/11 but worsened yesterday evening so he sought evaluation in the ER. CT head was obtained for stroke eval and showed no acute abnormalities and he was admitted for further evaluation. He reports that he has been undergoing evaluation for possible previous stroke with his PCP and a neurologist. He has had a CT of his head before which he states shows an "old stroke." He also had carotid dopplers done with and echo and and "scan of his abdomen" and was told everything was normal. He does endorse a history of palpitations. He will feel his heart racing and when he checks his pulse it's in the 130s-140s. He was told by his PCP that he needed a holter monitor. He denies any chest pain or SOB mustly just heart fluttering. Source: patient, family Date Seen 05/13/17 Time Seen by Provider: 11:00 Attending Physician Holly Schwab DO PCP Lisa Dean MD Referring Physician Date of Admission May 12, 2017 at 23:16 Home Medications & Allergies Home Medications Reviewed patient Home Medication Reconciliation Form Allergies Allergies Coded Allergies doxycycline (Verified Allergy, Unknown, 05/12/17) Past Xokvqol-Oplzje-Mvmxzp Hx Patient Social History Marrital Status: Alcohol Use: Denies Use Recreational Drug Use: No Smoking Status: Never a Smoker 2nd Hand Smoke Exposure: No Physical Abuse Screen: No Sexual Abuse: No Recent Foreign Travel: No Contact w/other who traveled: No Recent Hopitalizations: No Recent Infectious Disease Expo: Yes (sinus and ear infection, finished meds 3 days ago) Immunizations Up To Date Date of Pneumonia Vaccine: Dec 10, 2011 Date of Influenza Vaccine: Dec 10, 2011 Seasonal Allergies Seasonal Allergies: No Surgeries Yes (L SHOULDER REPLACEMENT) Orthopedic Respiratory No Cardiovascular No (CLEAN HEART CATH IN 2010) Hypertension Neurological Yes (last 3 months) Reproductive System Hx Reproductive Disorders: No Genitourinary No Gastrointestinal Yes Gastroesophageal Reflux Musculoskeletal Yes Degenerate Disk Disease Endocrine History of Endocrine Disorders: Yes Endocrine Disorders: Hypothyroidsim Cancer No Psychosocial History of Psychiatric Problem: No Integumentary History of Skin or Integumenta: No Blood Transfusions History of Blood Disorders: No Adverse Reaction to a Blood Tr: No Reviewed Nursing Assessment Reviewed/Agree w Nursing PMH: Yes Family Medical History Significant Family History: No Pertinent Family Hx Review of Systems Constitutional: No chills, No fever EENTM: No blurred vision, No double vision, No nose congestion, No throat pain Respiratory: No cough, No dyspnea on exertion, No short of breath Cardiovascular: No chest pain, No Hx of Intervention, palpitations Gastrointestinal: No abdominal pain, No constipation, No diarrhea, No nausea, No vomiting Genitourinary: No dysuria, No frequency Musculoskeletal: No joint pain, No muscle pain Skin: No lesions, No rash Psychiatric/Neurological: See HPI, Headache, Tingling, Other (difficulty swallowing) Physical Exam Physical Exam Vital Signs Vital Sign - Last 12Hours 05/12/17 20:43 Temp 97.2 Pulse 86 Resp 22 B/P (MAP) 145/87 (106) Pulse Ox 98 O2 Delivery Room Air Capillary Refill : Less Than 3 Seconds General Appearance: No Apparent Distress, WD/WN HEENT: PERRL/EOMI, Moist Mucous Membranes Neck: Non Tender, Supple Respiratory: Lungs Clear, No Respiratory Distress Cardiovascular: Regular Rate, Rhythm, No Murmur Gastrointestinal: Normal Bowel Sounds, Non Tender, Soft Extremity: Normal Capillary Refill, No Calf Tenderness Neurologic/Psychiatric: Alert, Oriented x3, Normal Mood/Affect, Other (mildly slurred speech) Skin: Normal Color, Warm/Dry Results Results/Procedures Lab Laboratory Tests 05/12/17 20:53 05/13/17 06:[address] HEAD WO-R/O STROKE INDICATION: Slurred speech. EXAMINATION: CT of the head without contrast. Contiguous axial sections were taken through the skull. FINDINGS: There is no mass, shift of the midline or hemorrhage to suggest an acute intracranial abnormality. The ventricles are not abnormally dilated and stable in size when compared to the prior exam of 04/25/2012. The vague areas of low density and the periventricular white matter seen on the prior study are again evident and do not seem to have changed significantly. These findings are nonspecific but may be related to encephalomalacia from microvascular ischemia. There is also cortical atrophy present. The degree of atrophy is consistent with the patient's age. The bone windows show no sign of a fracture or of a destructive lesion. The orbits are symmetrical and within normal limits. The sinuses, where visualized, are clear. IMPRESSION: 1. There is no evidence for an acute intracranial abnormality. 2. If clinical concern regarding an underlying abnormality persists, then MRI would be recommended for further study. MRI BRAIN W/O CONTRAST PROCEDURE: MR imaging of the brain without contrast. TECHNIQUE: Multiplanar, multisequence MR imaging of the brain was performed without contrast. INDICATION: Headaches. COMPARISON: CT head without contrast 05/12/2017. FINDINGS: Moderate generalized cerebral and cerebellar parenchymal volume loss. Moderate confluent periventricular T2 hyperintensities are greatest in the frontal lobes bilaterally. No other abnormal intracranial signal, restricted water diffusion, or hemosiderin deposition. Normal morphology including the major midline structures, sella, cerebellopontine angle, and posterior fossa. The orbits are unremarkable on this non-dedicated exam. Normal intracranial flow voids. No hydrocephalus or extra-axial fluid collections. The paranasal sinuses and mastoids are clear. Normal bone marrow signal. IMPRESSION: 1. Age-appropriate generalized cerebral and cerebellar parenchymal volume loss. 2. Confluent nonspecific T2 hyperintensities most likely representing chronic small vessel ischemic change. 3. No acute intracranial MRI findings. Short Stay Diagnosis Discharge Diagnosis-Short Stay Admission Diagnosis Slurred Speech Final Discharge Diagnosis TIA Conclusion Plan Admitted for observation for slurred speech and to rule out stroke. MRI was obtained and showed chronic small vessel disease but no acute infarcts. Given his slurred speech he was evaluated by [facility] and was found to have mild dysphagia and will follow up with his PCP and Neurologist who have already started working this up. Cardiology was consulted for evaluation of palpitations and had discussion with him about anticoagulation without known a-fib. Patient elected to start anticoagulation with Eliquis while on Holter monitor and discontinue it should no arrhythmia be found. Fasting lipid panel revealed dyslipidemia and he was started on a statin. He was given aspirin and was advised to continue on aspirin at discharge. Copy Copies To 1: LISA DEAN MD Clinical Quality Measures DVT/VTE Risk/Contraindication: Risk Factor Score Per Nursin RFS Level Per Nursing on Admit: 4+=Very High Stroke: Date of last known well: May 11, 2017 Quality Measures-Stroke Pt: Antithrombotic therapy by EOD 2, Assessed for Rehab (PT,OT,ARU,etc), D/C'd on Antithrombotic, D/C'd on Anticoagulant (for A- fib), D/C'd on statin (for LDL>=70), Lipid panel ordered GRETCHEN SELBY MD May 13, 2017 2:19 pm
--- NOTE | 2017-05-13 14:20 | Occ Therapy Progress Note ---
Therapy Progress Note 1410 to 1415 Pt seen in room, present. Admitted with slurred speech and L sided facial numbness. Pt reported that he has no weakness in UEs, has been able to dress himself, including socks and has been taking himself to the bathroom. Both pt and do not identify any skilled OT needs. Will DC OT, no OT indicated. visit JEREMIAS CALDERON OT May 13, 2017 14:20
[2017-05-13] MEDS ORDERED: APIX5TAB PO (14:35)
[2017-05-13 15:24] VITALS: BP 121/69
[2017-05-13] MEDS ORDERED: APIXABAN 5 MG (ELIQUIS) TABLET PO SCH (21:00)
== END 2017-05-13 14:18 | disposition home or self-care (01) ==
LOC: EDUNIT# 20:43 → ER 20:45 → 4TH 23:16
PROVIDERS: ADMIT Internal Medicine; ATTEND Internal Medicine
DX: G45.9 Transient cerebral ischemic attack, unspecified (principal); R13.10 Dysphagia, unspecified; I10 Essential (primary) hypertension; E78.5 Hyperlipidemia, unspecified; E03.9 Hypothyroidism, unspecified; K21.9 Gastro-esophageal reflux disease without esophagitis; R00.0 Tachycardia, unspecified; R00.2 Palpitations; R42 Dizziness and giddiness; Z79.82 Long term (current) use of aspirin; Z79.899 Other long term (current) drug therapy
CPT/HCPCS: 36415; 70450; 70551; 71045; 80053; 80061; 81000; 82962; 84443; 84484; 85025; 85379; 85610; 85730; 93005; 93041; G0378

== ENCOUNTER 2017-05-13 15:38 | Outpatient (RCR) | payer MEDICARE ==
[~2017-05-13 15:38] MED LIST changes: +APIX5TAB PO; +ASPI-983 PO; +ATOR40TA PO; +CYCL10TA9 PO; +HYDR-3820 PO; +LEVO50TA6 PO; +LISI10TA2 PO; +TIZA2TAB3 PO
--- NOTE | 2017-05-14 10:10 | Physician Query-Final Dx ---
MERLY LYN 05/14/17 1010: Clinic Account Progress/Dx Physician Query: Please give diagnosis Date of Service May 13, 2017 at 15:38 Valentino MUNGUIA MD 05/14/17 1123: Clinic Account Progress/Dx Physician Query: Please give diagnosis Valentino Munguia MD Date of Service 05/13/2017 DIAGNOSIS: Diagnosis TIA, Dizziness, tachycardia, Hypertension, Shortness of breath MERLY LYN May 14, 2017 10:10 Valentino MUNGUIA MD May 14, 2017 11:23
== END 2017-08-11 | disposition home or self-care (01) ==
LOC: CARD 15:38
PROVIDERS: ATTEND Internal Medicine Interventional Cardiology
DX: G45.9 Transient cerebral ischemic attack, unspecified (principal); I10 Essential (primary) hypertension; R00.0 Tachycardia, unspecified; R42 Dizziness and giddiness; R06.02 Shortness of breath
CPT/HCPCS: 93225; 93226

== ENCOUNTER → 2017-05-20 | Outpatient (CLI) | payer MEDICARE | LOC: RAD 09:52 | PROVIDERS: ATTEND Family Medicine | DX: Z53.29 Procedure and treatment not carried out because of patient's decision for other reasons (principal); I63.9 Cerebral infarction, unspecified ==

== ENCOUNTER 2017-06-10 10:30 | Outpatient (RCR) | payer MEDICARE | END 2017-08-14 | disposition home or self-care (01) | LOC: CARD 10:30 | PROVIDERS: ATTEND Internal Medicine Interventional Cardiology | DX: I48.91 Unspecified atrial fibrillation (principal) | CPT/HCPCS: 93270 ==

== ENCOUNTER 2017-06-23 14:34 | Emergency (ER) | payer MEDICARE ==
[~2017-06-23] VITALS: Ht 175.3 cm; Wt 86.2 kg
--- OUTSIDE RECORDS SUMMARY | 2017-06-23 14:39 | XMS REPORT | Continuity of Care Document ---
Author Author [facility] Organization [facility] Address Unknown Phone Unavailable Allergies Active Description Code Type Severity Reaction Onset Reported/Identified Relationship to Patient Clinical Status Yes No Known Drug Allergies [id number] Drug Allergy Unknown N/A 03/29/2011 Yes doxycycline [id number] Drug Allergy Unknown N/A 05/12/2017 Medications There is no data. Problems Date Dx Coded Attending Type Code Diagnosis Diagnosed By 04/07/2014 LISA DEAN MD Ot 719.46 05/13/2017 COSTA DO, KAYLIE Ot E03.9 HYPOTHYROIDISM, UNSPECIFIED 05/13/2017 COSTA DO, KAYLIE Ot E78.5 HYPERLIPIDEMIA, UNSPECIFIED 05/13/2017 COSTA DO, KAYLIE Ot G45.9 TRANSIENT CEREBRAL ISCHEMIC ATTACK, UNSP 05/13/2017 COSTA DO, KAYLIE Ot I10 ESSENTIAL (PRIMARY) HYPERTENSION 05/13/2017 COSTA DO, KAYLIE Ot K21.9 GASTRO-ESOPHAGEAL REFLUX DISEASE WITHOUT 05/13/2017 COSTA DO, KAYLIE Ot R00.0 TACHYCARDIA, UNSPECIFIED 05/13/2017 COSTA DO, KAYLIE Ot R00.2 PALPITATIONS 05/13/2017 COSTA DO, KAYLIE Ot R13.10 DYSPHAGIA, UNSPECIFIED 05/13/2017 COSTA DO, KAYLIE Ot R42 DIZZINESS AND GIDDINESS 05/13/2017 COSTA DO, KAYLIE Ot 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 Results Test [...] urine sediment by light microscopy NONE NRG Complete blood count (CBC) with automated white blood cell (WBC) differential - 05/13/17 06:10 Blood leukocytes automated count (number/volume) 6.5 10*3/uL 4.3-11.0 Blood erythrocytes automated count (number/volume) 4.20 10*6/uL 4.35-5.85 Venous blood hemoglobin measurement (mass/volume) 14.1 g/dL 13.3-17.7 Blood hematocrit (volume fraction) 40 % 40-54 Automated erythrocyte mean corpuscular volume 95 [foz_us] 80-99 Automated erythrocyte mean corpuscular hemoglobin (mass per erythrocyte) 34 pg 25-34 Automated erythrocyte mean corpuscular hemoglobin concentration measurement ( mass/volume) 35 g/dL 32-36 Automated erythrocyte distribution width ratio 12.4 % 10.0-14.5 Automated blood platelet count (count/volume) 192 10*3/uL 130-400 Automated blood platelet mean volume measurement 9.1 [foz_us] 7.4-10.4 Automated blood neutrophils/100 leukocytes 45 % 42-75 Automated blood lymphocytes/100 leukocytes 41 % 12-44 Blood monocytes/100 leukocytes 10 % 0-12 Automated blood eosinophils/100 leukocytes 3 % 0-10 Automated blood basophils/100 leukocytes 1 % 0-10 Blood neutrophils automated count (number/volume) 3.0 10*3 1.8-7.8 Blood lymphocytes automated count (number/volume) 2.7 10*3 1.0-4.0 Blood monocytes automated count (number/volume) 0.7 10*3 0.0-1.0 Automated eosinophil count 0.2 10*3/uL 0.0-0.3 Automated blood basophil count (count/volume) 0.0 10*3/uL 0.0-0.1 Comprehensive metabolic panel - 05/13/17 06:10 Serum or plasma sodium measurement (moles/volume) 138 mmol/L 135-145 Serum or plasma potassium measurement (moles/volume) 4.5 mmol/L 3.6-5.0 Serum or plasma chloride measurement (moles/volume) 106 mmol/L 98-107 Carbon dioxide 21 mmol/L 21-32 Serum or plasma anion gap determination (moles/volume) 11 mmol/L 5-14 Serum or plasma urea nitrogen measurement (mass/volume) 17 mg/dL 7-18 Serum or plasma creatinine measurement (mass/volume) 0.85 mg/dL 0.60-1.30 Serum or plasma urea nitrogen/creatinine mass ratio 20 NRG Serum or plasma creatinine measurement with calculation of estimated glomerular filtration rate > NRG Serum or plasma glucose measurement (mass/volume) 97 mg/dL 70-105 Serum or plasma calcium measurement (mass/volume) 8.9 mg/dL 8.5-10.1 Serum or plasma total bilirubin measurement (mass/volume) 0.5 mg/dL 0.1-1.0 Serum or plasma alkaline phosphatase measurement (enzymatic activity/volume) 57 U/L 40-136 Serum or plasma aspartate aminotransferase measurement (enzymatic activity/ volume) 50 U/L 5-34 Serum or plasma alanine aminotransferase measurement (enzymatic activity/volume ) 115 U/L 0-55 Serum or plasma protein measurement (mass/volume) 6.7 g/dL 6.4-8.2 Serum or plasma albumin measurement (mass/volume) 3.9 g/dL 3.2-4.5 THYROID STIMULATING HORMONE - 05/13/17 06:10 THYROID STIMULATING HORMONE 3.99 u[iU]/mL 0.35-4.94 Lipid 1996 panel - 05/13/17 06:10 Serum or plasma triglyceride measurement (mass/volume) 86 mg/dL <150 Serum or plasma cholesterol measurement (mass/volume) 160 mg/dL < 200 Serum or plasma cholesterol in HDL measurement (mass/volume) 41 mg/ dL 40-60 Cholesterol in LDL [mass/volume] in serum or plasma by direct assay 109 mg/dL 1-129 Serum or plasma cholesterol in VLDL measurement (mass/volume) 17 mg/ dL 5-40 Encounters ACCT No. Visit Date/Time Discharge Status Pt. 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
--- NOTE | 2017-06-23 15:10 | ED EENT ---
History of Present Illness General Chief Complaint: Facial Problems Stated Complaint: R SIDE FACIAL SWELLING Nursing Triage Note: c/o acute onset of right facial swelling. Symptoms have mostly resolved on ER arrival. Exam Limitations: no limitations History of Present Illness Date Seen by Provider: Jun 23, 2017 Time Seen by Provider: 15:04 Initial Comments The patient is a 66-year-old white male who presents with a complaint of acute swelling of the right side of his face. He states this came on with some pain while eating at a [employer] restaurant in [place]. His companions immediately noted the swelling. He states that he recently had a minor stroke like occurrence (early May) and he has had some control problems with the left side of his face. He generally pushes the food to the right because of this. He is also been using a therapeutic mouthwash which is caused irritation of the buccal mucosa. He then reports that a mucoid string occurred in his mouth and his mouth filled with saliva and the swelling largely went away. Timing/Duration: abrupt Prearrival Treatment: no prearrival treatment Allergies and Home Medications Allergies Coded Allergies: doxycycline (Verified Allergy, Unknown, 05/12/17) Home Medications Apixaban 5 Mg Tablet, 5 MG PO BID Prescribed by: GRETCHEN SELBY on 05/13/17 1435 Aspirin 81 Mg Tablet.dr, 81 MG PO DAILY, (Reported) Atorvastatin Calcium 40 Mg Tablet, 40 MG PO HS Prescribed by: GRETCHEN SELBY on 05/13/17 1418 Cyclobenzaprine HCl 10 Mg Tablet, 10 MG PO TID PRN for MUSCLE SPASMS, (Reported) Hydrocodone/Acetaminophen 1 Each Tablet, 1 TAB PO BID PRN for PAIN-MODERATE, ( Reported) Levothyroxine Sodium 50 Mcg Tablet, 50 MCG PO DAILY, (Reported) Lisinopril 10 Mg Tablet, 10 MG PO BID, (Reported) Tizanidine HCl 2 Mg Tablet, 2-4 MG PO HS PRN for MUSCLE SPASMS/SLEEP, (Reported) Patient Home Medication List Home Medication List Reviewed: Yes Review of Systems Constitutional: see HPI Eyes: No Symptoms Reported Ears: No Symptoms Reported Nose: no symptoms reported Mouth: see HPI Throat: no symptoms reported Respiratory: no symptoms reported Cardiovascular: no symptoms reported Gastrointestinal: no symptoms reported Musculoskeletal: no symptoms reported Skin: no symptoms reported Neurological: No Symptoms Reported Hematologic/Lymphatic: No Symptoms Reported Immunological/Allergic: no symptoms reported Past Tuvtkgi-Zpuqkl-Ubnhno Hx Patient Social History Alcohol Use: Denies Use Recreational Drug Use: No Smoking Status: Never a Smoker 2nd Hand Smoke Exposure: No Recent Foreign Travel: No Contact w/Someone Who Travel: No Recent Infectious Disease Expo: No Recent Hopitalizations: No Immunizations Up To Date Date of Pneumonia Vaccine: Dec 10, 2011 Date of Influenza Vaccine: Dec 10, 2011 Seasonal Allergies Seasonal Allergies: No Surgeries History of Surgeries: Yes (L SHOULDER REPLACEMENT) Surgeries: Orthopedic Respiratory History of Respiratory Disorde: No Cardiovascular History of Cardiac Disorders: No (CLEAN HEART CATH IN 2010) Cardiac Disorders: Hypertension Neurological History of Neurological Disord: Yes (last 3 months) Reproductive System Hx Reproductive Disorders: No Genitourinary History of Genitourinary Disor: No Gastrointestinal History of Gastrointestinal Di: Yes Gastrointestinal Disorders: Gastroesophageal Reflux Musculoskeletal History of Musculoskeletal Dis: Yes Musculoskeletal Disorders: Degenerate Disk Disease Endocrine History of Endocrine Disorders: Yes Endocrine Disorders: Hypothyroidsim Cancer History of Cancer: No Psychosocial History of Psychiatric Problem: No Integumentary History of Skin or Integumenta: No Blood Transfusions History of Blood Disorders: No Adverse Reaction to a Blood Tr: No Family Medical History Significant Family History: No Pertinent Family Hx Physical Exam Vital Signs Vital Signs - First Documented 06/23/17 14:50 Temp 98.4 Pulse 90 Resp 16 B/P (MAP) 107/84 (92) Pulse Ox 98 O2 Delivery Room Air General Appearance: WD/WN, no apparent distress, mild distress, moderate distress, severe distress, cachetic Eyes: bilateral eye normal inspection Ears: bilateral ear auricle normal Nose: normal inspection Mouth/Throat: other (there is erythema bilaterally of the buccal mucosa. There is slight fluctuance in the right parotid gland. 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 Decision time for Depature: 15:09 Referrals: BUDDY DIAZ MD (PCP/Family) Primary Care Physician Add. Discharge Instructions: All discharge instructions reviewed with patient and/or family. Voiced understanding. Lots of liquids. Sucking on a lemon drop may induce greater and thinner production of saliva. If it recurs again a hot compress over a year cheek will be helpful as well. LIUDMILA Romano MD Jun 23, 2017 15:10
[2017-06-23 16:27] VITALS: BP 107/84
== END 2017-06-23 16:27 | disposition home or self-care (01) ==
LOC: EDUNIT# 14:34 → ER 14:35
DX: K11.8 Other diseases of salivary glands (principal); E03.9 Hypothyroidism, unspecified; K21.9 Gastro-esophageal reflux disease without esophagitis; I10 Essential (primary) hypertension; Z96.612 Presence of left artificial shoulder joint; Z79.82 Long term (current) use of aspirin; Z88.1 Allergy status to other antibiotic agents; Z86.73 Personal history of transient ischemic attack (TIA), and cerebral infarction without residual deficits
CPT/HCPCS: 99283

== ENCOUNTER → 2017-10-24 | Day surgery (SDC) | payer MEDICARE ==
[~2017-10-24] VITALS: Ht 175.3 cm; Wt 86.4 kg
[~2017-10-24] MED LIST changes: +LIDOCAINE 1% INJ 20 ML 20 ML VIAL ONE
--- OUTSIDE RECORDS SUMMARY | 2017-10-24 08:29 | XMS REPORT | Continuity of Care Document ---
Author Author [facility] Organization [facility] Address Unknown Phone Unavailable Allergies Active Description Code Type Severity Reaction Onset Reported/Identified Relationship to Patient Clinical Status Yes DOXYCYCLINE MONOHYDRATE MILD DERMATOLOGICAL - HARRY Yes NO KNOWN DRUG ALLERGIES UNKNOWN NO KNOWN DRUG ALLERG Yes No Known Drug Allergies [id number] Drug Allergy Unknown N/A 03/29/2011 Yes doxycycline [id number] Drug Allergy Unknown N/A 05/12/2017 Medications There is no data. Problems Date Dx Coded Attending Type Code Diagnosis Diagnosed By 04/07/2014 DAINNE OSBORNE, LISA White Ot 719.46 05/01/2017 Keisha, Nafisa A 401.0 MALIGNANT ESSENTIAL HYPERTENSION 05/01/2017 Keisha, Nafisa A I10 ESSENTIAL (PRIMARY) HYPERTENSION 05/01/2017 Keisha, Nafisa W 272.8 OTHER DISORDERS OF LIPOID METABOLISM 05/01/2017 Keisha, Nafisa A 401.0 MALIGNANT ESSENTIAL HYPERTENSION 05/01/2017 Keisha, Nafisa W 780.4 DIZZINESS AND GIDDINESS 05/01/2017 Keisha, Nafisa W E78.5 HYPERLIPIDEMIA, UNSPECIFIED 05/01/2017 Keisha, Nafisa A I10 ESSENTIAL (PRIMARY) HYPERTENSION 05/01/2017 Keisha, Nafisa W R42 DIZZINESS AND GIDDINESS 05/01/2017 Keisha, Nafisa W 244.9 UNSPECIFIED HYPOTHYROIDISM 05/01/2017 Keisha, Nafisa W 272.8 OTHER DISORDERS OF LIPOID METABOLISM 05/01/2017 Keisha, Nafisa A 401.0 MALIGNANT ESSENTIAL HYPERTENSION 05/01/2017 Keisha, Nafisa W 780.4 DIZZINESS AND GIDDINESS 05/01/2017 Keisha, Nafisa W E03.9 HYPOTHYROIDISM, UNSPECIFIED 05/01/2017 Keisha, Nafisa W E78.5 HYPERLIPIDEMIA, UNSPECIFIED 05/01/2017 Keisha, Nafisa A I10 ESSENTIAL (PRIMARY) HYPERTENSION 05/01/2017 Keisha, Nafisa W R42 DIZZINESS AND GIDDINESS 05/01/2017 Keisha, Nafisa W 244.9 UNSPECIFIED HYPOTHYROIDISM 05/01/2017 Keisha, Nafisa W 272.8 OTHER DISORDERS OF LIPOID METABOLISM 05/01/2017 Keisha, Nafisa A 401.0 MALIGNANT ESSENTIAL HYPERTENSION 05/01/2017 Keisha, Nafisa W 780.4 DIZZINESS AND GIDDINESS 05/01/2017 Keisha, Nafisa W 790.93 05/01/2017 Keisha, Nafisa W E03.9 HYPOTHYROIDISM, UNSPECIFIED 05/01/2017 Keisha, Nafisa W E78.5 HYPERLIPIDEMIA, UNSPECIFIED 05/01/2017 Keisha, Nafisa A I10 ESSENTIAL (PRIMARY) HYPERTENSION 05/01/2017 Keisha, Nafisa W R42 DIZZINESS AND GIDDINESS 05/01/2017 Keisha, Nafisa W R97.2 ELEVATED PROSTATE SPECIFIC ANTIGEN [PSA] 05/01/2017 Keisha, Nafisa W 244.9 UNSPECIFIED HYPOTHYROIDISM 05/01/2017 Keisha, Nafisa W 272.8 OTHER DISORDERS OF LIPOID METABOLISM 05/01/2017 Keisha, Nafisa A 401.0 MALIGNANT ESSENTIAL HYPERTENSION 05/01/2017 Keisha, Nafisa W 780.4 DIZZINESS AND GIDDINESS 05/01/2017 Keisha, Nafisa W 790.93 05/01/2017 Keisha, Nafisa W E03.9 HYPOTHYROIDISM, UNSPECIFIED 05/01/2017 Keisha, Nafisa W E78.5 HYPERLIPIDEMIA, UNSPECIFIED 05/01/2017 Keisha, Nafisa A I10 ESSENTIAL (PRIMARY) HYPERTENSION 05/01/2017 Keisha, Nafisa W R42 DIZZINESS AND GIDDINESS 05/01/2017 Keisha, Nafisa W R97.2 ELEVATED PROSTATE SPECIFIC ANTIGEN [PSA] 05/13/2017 COSTA DO, KAYLIE Ot E03.9 HYPOTHYROIDISM, [...] DO, KAYLIE Ot R13.10 DYSPHAGIA, UNSPECIFIED 05/13/2017 KAYLIE COSTA DO Ot R42 DIZZINESS AND GIDDINESS 05/13/2017 JULISSA MENDEZ KAYLIE Ot 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 05/13/2017 KAYLIE COSTA DO Ot Z79.899 OTHER DETENTION (CURRENT) DRUG THERAPY 05/17/2017 DODIE OSBORNE, M ROCHELLE Ot I48.91 UNSPECIFIED ATRIAL FIBRILLATION 05/21/2017 BUDDY DIAZ MD Ot I63.9 CEREBRAL INFARCTION, UNSPECIFIED 05/21/2017 BUDDY DIAZ MD Ot Z53.29 PROC/TRTMT NOT CRD OUT BEC PT DECISION F 06/23/2017 LIUDMILA SIDHU MD Ot E03.9 HYPOTHYROIDISM, UNSPECIFIED 06/23/2017 LIUDMILA SIDHU MD Ot I10 ESSENTIAL (PRIMARY) HYPERTENSION 06/23/2017 LIUDMILA SIDHU MD Ot 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 06/23/2017 LIUDMILA SIDHU MD Ot K21.9 GASTRO-ESOPHAGEAL REFLUX DISEASE WITHOUT 06/23/2017 LIUDMILA SIDHU MD Ot R22.0 LOCALIZED SWELLING, MASS AND LUMP, HEAD 06/23/2017 LIUDMILA SIDHU MD Ot Z79.82 DETENTION (CURRENT) USE OF ASPIRIN 06/23/2017 LIUDMILA SIDHU MD Ot Z86.73 PRSNL HX OF TIA (TIA), AND CEREB INFRC W 06/23/2017 LIUDMILA SIDHU MD Ot Z88.1 ALLERGY STATUS TO OTHER ANTIBIOTIC AGENT 06/23/2017 LIUDMILA SIDHU MD Ot 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 06/29/2017 LIUDMILA SIDHU MD Ot E03.9 HYPOTHYROIDISM, UNSPECIFIED 06/29/2017 LIUDMILA SIDHU MD Ot I10 ESSENTIAL (PRIMARY) HYPERTENSION 06/29/2017 LIUDMILA SIDHU MD Ot 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 06/29/2017 LIUDMILA SIDHU MD, Ot K21.9 GASTRO-ESOPHAGEAL REFLUX DISEASE WITHOUT 06/29/2017 LIUDMILA SIDHU MD Ot R22.0 LOCALIZED SWELLING, MASS AND LUMP, HEAD 06/29/2017 LIUDMILA SIDHU MD Ot Z79.82 DETENTION (CURRENT) USE OF ASPIRIN 06/29/2017 LIUDMILA SIDHU MD Ot Z86.73 PRSNL HX OF TIA (TIA), AND CEREB INFRC W 06/29/2017 LIUDMILA SIDHU MD, Ot Z88.1 ALLERGY STATUS TO OTHER ANTIBIOTIC AGENT 06/29/2017 LIUDMILA SIDHU MD, Ot 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 08/11/2017 Valentino SOTLL MD, Ot G45.9 TRANSIENT CEREBRAL ISCHEMIC ATTACK, UNSP 08/11/2017 Valentino STOLL MD Ot I10 ESSENTIAL (PRIMARY) HYPERTENSION 08/11/2017 Valentino STLOL MD Ot R00.0 TACHYCARDIA, UNSPECIFIED 08/11/2017 Valentino STOLL MD, Ot R06.02 SHORTNESS OF BREATH 08/11/2017 Valentino STOLL MD Ot R42 DIZZINESS AND GIDDINESS 08/13/2017 Valentino STOLL MD, Ot G45.9 TRANSIENT CEREBRAL ISCHEMIC ATTACK, UNSP 08/13/2017 Valentino STOLL MD Ot I10 ESSENTIAL (PRIMARY) HYPERTENSION 08/13/2017 Valentino STOLL MD Ot R00.0 TACHYCARDIA, UNSPECIFIED 08/13/2017 Valentino STOLL MD Ot R06.02 SHORTNESS OF BREATH 08/13/2017 Valentino STOLL MD Ot R42 DIZZINESS AND GIDDINESS 08/14/2017 Valentino STOLL MD Ot I48.91 UNSPECIFIED ATRIAL FIBRILLATION 08/15/2017 Valentino STOLL MD, Ot I48.91 UNSPECIFIED ATRIAL FIBRILLATION Procedures There is no data. Results Test [...] Status Pt. Type Provider Facility Loc./Unit Complaint [id number] 08/15/2017 10:00:00 08/15/2017 23:59:59 CLS Preadmit Valentino STOLL MD [facility] CARD AFIB [id number] 06/10/2017 10:30:00 08/14/2017 00:01:00 DIS Outpatient Valentino STOLL MD [facility] CARD AFIB [id number] 08/12/2017 15:45:00 08/12/2017 23:59:59 CLS Preadmit Valentino STOLL MD [facility] CARD AFIB [id number] 05/13/2017 15:38:00 08/11/2017 00:01:00 DIS Outpatient Valentino STOLL MD [facility] CARD AFIB [id number] 06/23/2017 14:35:00 06/23/2017 16:27:00 DIS Emergency LIUDMILA SIDHU MD [facility] ER R SIDE FACIAL SWELLING [id number] 05/20/2017 09:52:00 05/20/2017 23:59:59 CLS Outpatient JOE OSBORNE, BUDDY [facility] RAD CVA [id number] 05/12/2017 23:16:00 05/13/2017 15:31:00 DIS Inpatient KAYLIE COSTA DO [facility] 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
[2017-10-24 08:50] VITALS: BP 128/72
--- NOTE | 2017-10-24 10:03 | Implantation of Loop Monitor ---
Implant of Loop Monitior PROCEDURE PHYSICIAN: Angie Munguia MD IMPLANTATION OF LOOP MONITOR REPORT DATE OF PROCEDURE: 10/24/17 ATTENDING PHYSICIAN: Dr. Isra Munguia. REFERRING PHYSICIAN: PERFORMING PHYSICIAN: Dr. Isra Munguia. INDICATION: Long-term surveillance of atrial fibrillation PREOP DIAGNOSIS: Long-term surveillance of atrial fibrillation POSTOP DIAGNOSIS: Atrial fibrillation, s/p implantation of loop recorder. PROCEDURE DETAILS: The patient is a 67 male with history of paroxysmal atrial fibrillation requiring long-term surveillance. Therefore implantable loop recorder was discussed and agreed with the patient. Informed consent was taken. All risks and complications were discussed at length. The patient was draped and prepped in the usual sterile fashion. Local anesthesia was lidocaine, which was given in the substernal area close to the 4th intercostal space. Loop monitor was implanted according to the protocol. Steri-Strips were placed at the end of the procedure. There were no complications and the patient tolerated the procedure well. ANESTHESIA: Local anesthesia with lidocaine. COMPLICATIONS: None CONTRAST/FLUOROSCOPY: None CONCLUSION: 1. Successful implantation of loop monitor for atrial fibrillation. 2. No complication and the patient tolerated the procedure well. Angie Munguia MD, RS, CCDS Cardiac Electrophysiology Valentino MUNGUIA MD Oct 24, 2017 10:02
== END | disposition home or self-care (01) ==
LOC: CATH 08:24
PROVIDERS: ATTEND Internal Medicine Interventional Cardiology
DX: I48.91 Unspecified atrial fibrillation (principal); I10 Essential (primary) hypertension; E78.5 Hyperlipidemia, unspecified; E03.9 Hypothyroidism, unspecified; Z86.73 Personal history of transient ischemic attack (TIA), and cerebral infarction without residual deficits; Z79.01 Long term (current) use of anticoagulants; Z79.82 Long term (current) use of aspirin; Z79.899 Other long term (current) drug therapy
CPT/HCPCS: 33282

== ENCOUNTER 2020-07-16 12:50 | Inpatient (IN) | payer MEDICARE ==
[~2020-07-16] VITALS: Ht 177.8 cm; Wt 85.3 kg
[~2020-07-16 12:50] MED LIST changes: +ACHYD1T PO; +ASPI-1238 PO; -ASPI-983 PO; -HYDR-3820 PO; -LIDOCAINE 1% INJ 20 ML 20 ML VIAL ONE; -LISI10TA2 PO; +LISI10TA25 PO; +TIZA-169 PO; -TIZA2TAB3 PO
[2020-07-16] MEDS ORDERED: ACETAMINOPHEN 500 MG TAB (TYLENOL) ONE (13:10)
--- NOTE | 2020-07-16 13:12 | ED Fever ---
History of Present Illness General Stated Complaint: FEVER, Source: patient Exam Limitations: no limitations History of Present Illness Date Seen by Provider: Jul 16, 2020 Time Seen by Provider: 12:57 Initial Comments To ER with reports of a fever up to 102 onset this morning. He had a prostate biopsy with Dr. Umana in [place] 48 hours ago. He denies any pain or dysuria. He has a chronic unchanged cough. He has received both Covid vaccinations. He denies any shortness of breath body aches. He is taken nothing for the fever. Timing/Duration: constant Fever Quality: greater than 100.5 F Fever Therapy BACK TENDER PULP DRIER: none Associated Symptoms: No abdominal pain, No chest pain, No confusion; cough; No headache, No muscle aches, No nausea/vomiting, No rash, No shortness of breath Allergies and Home Medications Allergies Coded Allergies: doxycycline (Verified Allergy, Unknown, 05/12/17) Home Medications Apixaban 5 Mg Tablet, 5 MG PO BID Prescribed by: GRETCHEN SELBY on 05/13/17 1435 Aspirin 81 Mg Tablet.dr, 81 MG PO DAILY, (Reported) Atorvastatin Calcium 40 Mg Tablet, 40 MG PO HS Prescribed by: GRETCHEN SELBY on 05/13/17 1418 Cyclobenzaprine HCl 10 Mg Tablet, 10 MG PO TID PRN for MUSCLE SPASMS, (Reported) Hydrocodone Bit/Acetaminophen 1 Each Tablet, 1 TAB PO BID PRN for PAIN-MODERATE, (Reported) Levothyroxine Sodium 50 Mcg Tablet, 50 MCG PO DAILY, (Reported) Lisinopril 10 Mg Tablet, 10 MG PO BID, (Reported) Tizanidine HCl 2 Mg Tablet, 2-4 MG PO HS PRN for MUSCLE SPASMS/SLEEP, (Reported) Patient Home Medication List Home Medication List Reviewed: Yes Review of Systems Review of Systems Constitutional: see HPI, chills, fever EENTM: see HPI Respiratory: no symptoms reported Cardiovascular: no symptoms reported Genitourinary: no symptoms reported Musculoskeletal: no symptoms reported Skin: no symptoms reported Psychiatric/Neurological: No Symptoms Reported Hematologic/Lymphatic: No Symptoms Reported Immunological/Allergic: no symptoms reported Past Lunstss-Rawaln-Gscfht Hx Patient Social History 2nd Hand Smoke Exposure: No Recent Hopitalizations: No Immunizations Up To Date Date of Pneumonia Vaccine: Dec 21, 2015 Date of Influenza Vaccine: Dec 10, 2011 Seasonal Allergies Seasonal Allergies: No Past Medical History Surgeries: Yes (L SHOULDER REPLACEMENT) Orthopedic Respiratory: No Cardiac: No (CLEAN HEART CATH IN 2011) Hypertension Neurological: Yes (last 3 months) Reproductive Disorders: No Genitourinary: No Gastrointestinal: Yes Gastroesophageal Reflux Musculoskeletal: Yes Degenerate Disk Disease Endocrine: Yes Hypothyroidsim Cancer: No Psychosocial: No Integumentary: No Blood Disorders: No Adverse Reaction/Blood Tranf: No Family Medical History No Pertinent Family Hx Physical Exam Vital Signs - First Documented 07/16/20 13:03 Temp 38.2 Pulse 83 Resp 18 B/P (MAP) 149/72 (97) Pulse Ox 98 O2 Delivery Room Air Capillary Refill : Height: 5'9.00" Weight: 190lbs. 9.0oz. 86.394017qy; 28.1 BMI Method:Stated General Appearance: WD/WN, no apparent distress Eyes: Bilateral Eye Normal Inspection, Bilateral Eye PERRL, Bilateral Eye EOMI HEENT: PERRL/EOMI, normal ENT inspection Neck: non-tender, full range of motion Respiratory: normal breath sounds, no respiratory distress, no accessory muscle use Cardiovascular: regular rate, rhythm, no murmur Gastrointestinal: normal bowel sounds, non tender, soft Neurologic/Psychiatric: alert, normal mood/affect, oriented x 3 Skin: normal color, warm/dry Focused Exam Lactate Level 07/16/20 13:26: Lactic Acid Level 1.47 Lactic Acid Level Laboratory Tests Test 07/16/20 13:26 Lactic Acid Level 1.47 MMOL/L (0.50-2.00) Progress/Results/Core Measures Suspected Sepsis SIRS Temperature: Pulse: Respiratory Rate: Laboratory Tests 07/16/20 13:12: White Blood Count 15.2H Blood Pressure / Mean: 07/16/20 13:26: Lactic Acid Level 1.47 Laboratory Tests 07/16/20 13:12: Creatinine 0.92, Platelet Count 158, Total Bilirubin 0.9 Results/Orders Lab Results Laboratory Tests Test 07/16/20 13:08 07/16/20 13:12 07/16/20 13:26 Range/Units Urine Color DARK YELLOW Urine Clarity SL CLOUDY Urine pH 6.0 5-9 Urine Specific Power 1.015 L 1.016-1.022 Urine Protein NEGATIVE NEGATIVE Urine Glucose (UA) NEGATIVE NEGATIVE Urine Ketones NEGATIVE NEGATIVE Urine Nitrite NEGATIVE NEGATIVE Urine Bilirubin NEGATIVE NEGATIVE Urine Urobilinogen 0.2 < = 1.0 MG/DL Urine Leukocyte Esterase 1+ H NEGATIVE Urine RBC (Auto) 3+ H NEGATIVE Urine RBC >100 H /HPF Urine WBC 10-25 H /HPF Urine Squamous Epithelial Cells 0-2 /HPF Urine Crystals NONE /LPF Urine Bacteria MODERATE H /HPF Urine Casts NONE /LPF Urine Mucus NEGATIVE /LPF Urine Culture Indicated YES White Blood Count 15.2 H 4.3-11.0 10^3/uL Red Blood Count 4.05 L 4.30-5.52 10^6/uL Hemoglobin 13.7 13.3-17.7 g/dL Hematocrit 40 40-54 % Mean Corpuscular Volume 98 80-99 fL Mean Corpuscular Hemoglobin 34 25-34 pg Mean Corpuscular Hemoglobin Concent 35 32-36 g/dL Red Cell Distribution Width 13.4 10.0-14.5 % Platelet Count 158 130-400 10^3/uL Mean Platelet Volume 9.2 9.0-12.2 fL Immature Granulocyte % (Auto) 1 % Neutrophils (%) (Auto) 85 H 42-75 % Lymphocytes (%) (Auto) 8 L 12-44 % Monocytes (%) (Auto) 7 0-12 % Eosinophils (%) (Auto) 0 0-10 % Basophils (%) (Auto) 0 0-10 % Neutrophils # (Auto) 12.9 H 1.8-7.8 10^3/uL Lymphocytes # (Auto) 1.2 1.0-4.0 10^3/uL Monocytes # (Auto) 1.0 0.0-1.0 10^3/uL Eosinophils # (Auto) 0.0 0.0-0.3 10^3/uL Basophils # (Auto) 0.0 0.0-0.1 10^3/uL Immature Granulocyte # (Auto) 0.1 0.0-0.1 10^3/uL Sodium Level 132 L 135-145 MMOL/L Potassium Level 4.2 3.6-5.0 MMOL/L Chloride Level 99 98-107 MMOL/L Carbon Dioxide Level 22 21-32 MMOL/L Anion Gap 11 5-14 MMOL/L Blood Urea Nitrogen 12 7-18 MG/DL Creatinine 0.92 0.60-1.30 MG/DL Estimat Glomerular Filtration Rate > 60 BUN/Creatinine Ratio 13 Glucose Level 128 H 70-105 MG/DL Calcium Level 8.9 8.5-10.1 MG/DL Corrected Calcium 8.8 8.5-10.1 MG/DL Total Bilirubin 0.9 0.1-1.0 MG/DL Aspartate Amino Transf (AST/SGOT) 26 5-34 U/L Alanine Aminotransferase (ALT/SGPT) 53 0-55 U/L Alkaline Phosphatase 56 40-136 U/L C-Reactive Protein High Sensitivity 10.69 H 0.00-0.50 MG/DL Total Protein 7.2 6.4-8.2 GM/DL Albumin 4.1 3.2-4.5 GM/DL Lactic Acid Level 1.47 0.50-2.00 MMOL/L My Orders Orders - TIA BYNUM APRN Cbc With Automated Diff (07/16/20 13:05) Comprehensive Metabolic Panel (07/16/20 13:05) Ua Culture If Indicated (07/16/20 13:05) Procalcitonin (Pct) (07/16/20 13:05) Hs C Reactive Protein (07/16/20 13:05) Chest 1 View, Ap/Pa Only (07/16/20 13:05) Blood Culture (07/16/20 13:05) Lactic Acid Analyzer (07/16/20 13:05) Acetaminophen Tablet (Tylenol Tablet) (07/16/20 13:10) Manual Differential (07/16/20 13:12) Urine Culture (07/16/20 13:08) Ceftriaxone For Iv Use (Rocephin For I (07/16/20 13:45) Vital Signs/I&O 07/16/20 13:03 Temp 38.2 Pulse 83 Resp 18 B/P (MAP) 149/72 (97) Pulse Ox 98 O2 Delivery Room Air Capillary Refill : Diagnostic Imaging Diagonstic Imaging: Xray Comments NAME: JESSIKATOMASZ [facility] REC#: [id number] PT STATUS: REG ER : 1950 PHYSICIAN: TIA BYNUM APRN ADMIT DATE: 07/16/20/ER Draft Date of Exam:07/16/20 CHEST 1 VIEW, AP/PA ONLY INDICATION: Fever. Comparison made with prior examination 05/12/2017. FINDINGS: The heart size is normal. There is minimal discoid atelectasis in lung bases. There is no pleural fusion or pneumothorax. Mediastinum is unremarkable. IMPRESSION: Minimal discoid atelectasis in lung bases otherwise unremarkable. Dictated on workstation # [id number] Dict: 07/16/20 1349 Trans: 07/16/20 1352 [id number] Interpreted by: DANE ESCAMILLA MD Electronically signed by: Departure Communication (Admissions) Time/Spoke to Admitting Phy: 13:[address] Cheney, we will admit. I will use Rocephin antibiotics. She would like Dr. Aldana will consulted in case patient starts to bleed. I spoke with Dr. Malin he agrees to consult. Impression Primary Impression: Urinary tract infection Additional Impression: Sepsis Disposition: ADMITTED INPATIENT Condition: Stable Admissions Decision to Admit Reason: Admit from ER (General) Decision to Admit/Date: Jul 16, 2020 Time/Decision to Admit Time: 13:47 Departure-Patient Inst. Referrals: CHIQUIS HOPKINS (PCP/Family) Primary Care Physician TIA BYNUM APRN Jul 16, 2020 13:12
[2020-07-16 13:22] LABS: BILIRUBIN,URINE NEGATIVE (NEGATIVE); CLARITY,URINE SL CLOUDY; COLOR,URINE DARK YELLOW; GLUCOSE, URINE (UA) NEGATIVE (NEGATIVE); KETONES,URINE NEGATIVE (NEGATIVE); LEUKOCYTE ESTERASE ,URINE 1+ (NEGATIVE); NITRITE,URINE NEGATIVE (NEGATIVE); PROTEIN,URINE NEGATIVE (NEGATIVE)
[2020-07-16 13:24] LABS: BASOPHILS % (AUTO) 0 % (0-10); EOSINOPHILS % (AUTO) 0 % (0-10); HEMATOCRIT 40 % (40-54); HEMOGLOBIN 13.7 g/dL (13.3-17.7); LYMPHOCYTES # (AUTO) 1.2 10^3/uL (1.0-4.0); LYMPHOCYTES % (AUTO) 8 % (12-44); MEAN CORPUSCULAR HEMOGLOBIN 34 pg (25-34); MEAN CORPUSCULAR HGB CONC 35 g/dL (32-36); MEAN CORPUSCULAR VOLUME 98 fL (80-99); MEAN PLATELET VOLUME 9.2 fL (9.0-12.2); MONOCYTES % (AUTO) 7 % (0-12); NEUTROPHILS # (AUTO) 12.9 10^3/uL (1.8-7.8); NEUTROPHILS % (AUTO) 85 % (42-75); PLATELET COUNT 158 10^3/uL (130-400); WHITE BLOOD COUNT 15.2 10^3/uL (4.3-11.0)
[2020-07-16 13:30] LABS: BACTERIA,URINE MODERATE /HPF; RBC,URINE >100 /HPF; SQUAMOUS EPITHELIAL CELL,UR 0-2 /HPF
[2020-07-16 13:32] LABS: ALBUMIN 4.1 GM/DL (3.2-4.5); CHLORIDE 99 MMOL/L (98-107); POTASSIUM 4.2 MMOL/L (3.6-5.0); SODIUM 132 MMOL/L (135-145)
[2020-07-16 13:33] LABS: CALCIUM 8.9 MG/DL (8.5-10.1)
[2020-07-16 13:34] LABS: GLUCOSE 128 MG/DL (70-105); TOTAL PROTEIN 7.2 GM/DL (6.4-8.2)
[2020-07-16 13:35] LABS: CARBON DIOXIDE 22 MMOL/L (21-32)
[2020-07-16 13:36] LABS: BILIRUBIN,TOTAL 0.9 MG/DL (0.1-1.0)
[2020-07-16 13:38] LABS: ALKALINE PHOSPHATASE 56 U/L (40-136); CREATININE SERUM 0.92 MG/DL (0.60-1.30); GFR ESTIMATED > 60
[2020-07-16 13:39] LABS: BUN/CREATININE RATIO 13
[2020-07-16 13:41] LABS: ALANINE AMINOTRANSFERASE 53 U/L (0-55)
[2020-07-16] MEDS ORDERED: cefTRIAXone FOR IV USE 1,000 MG in WATER (STERILE) FOR INJECTION 10 ML IV ONE (13:45)
--- NOTE | 2020-07-16 13:53 | Diagnostic Imaging Report ---
INDICATION: Fever. Comparison made with prior examination 05/12/2017. FINDINGS: The heart size is normal. There is minimal discoid atelectasis in lung bases. There is no pleural fusion or pneumothorax. Mediastinum is unremarkable. IMPRESSION: Minimal discoid atelectasis in lung bases otherwise unremarkable. Dictated by: Dictated on workstation # [id number]
[2020-07-16 14:22] LABS: LYMPHOCYTES % (MANUAL) 10 %; MONOCYTES % (MANUAL) 6 %; NEUTROPHILS % (MANUAL) 84 %; RBC MORPH NORMAL
[2020-07-16] MEDS ORDERED: LACTATED RINGERS 1,000 ML IV ONE (15:02)
[2020-07-16] MEDS: LACTATED RINGERS 1,000 ML IV SCH ×2 (15:36→22:56)
[2020-07-16 16:00] VITALS: BP 110/63
[2020-07-16 20:00] VITALS: BP 116/63
[2020-07-16] MEDS: ONDANSETRON 4 MG/2 ML (SDV) Z0FRAN IVP PRN (20:02)
[2020-07-16] MEDS: ACETAMINOPHEN 325 MG TABLET PO PRN (20:03)
[2020-07-16 23:43] VITALS: BP 99/50
[2020-07-17] MEDS: ACETAMINOPHEN 325 MG TABLET PO PRN (01:57)
[2020-07-17 04:00] VITALS: BP 120/66
[2020-07-17 06:07] LABS: BASOPHILS % (AUTO) 0 % (0-10); EOSINOPHILS % (AUTO) 0 % (0-10); HEMATOCRIT 39 % (40-54); LYMPHOCYTES # (AUTO) 1.1 10^3/uL (1.0-4.0); LYMPHOCYTES % (AUTO) 9 % (12-44); MEAN CORPUSCULAR HEMOGLOBIN 34 pg (25-34); MEAN CORPUSCULAR HGB CONC 33 g/dL (32-36); MEAN CORPUSCULAR VOLUME 101 fL (80-99); MONOCYTES # (AUTO) 0.8 10^3/uL (0.0-1.0); MONOCYTES % (AUTO) 7 % (0-12); NEUTROPHILS # (AUTO) 9.4 10^3/uL (1.8-7.8); NEUTROPHILS % (AUTO) 83 % (42-75); PLATELET COUNT 132 10^3/uL (130-400); WHITE BLOOD COUNT 11.4 10^3/uL (4.3-11.0)
[2020-07-17] MEDS: LACTATED RINGERS 1,000 ML IV SCH ×2 (06:57→17:22)
[2020-07-17] MEDS: LEVOTHYROXINE 50 MCG (LEVOTHROID) TAB PO SCH (08:46)
[2020-07-17 09:03] VITALS: BP 106/54
--- NOTE | 2020-07-17 09:42 | History & Physical-Hospitalist ---
History of Present Illness HPI/Chief Complaint Pt is a 69yoCM with a PMH of hypothyroidism who presented to the ER due to fever. He had a prostate biopsy on 07/14 and completed his cipro prophylaxis but on 07/15 developed a fever and began to feel poorly. He was nauseated and vomited once as well. This continued over night and into yesterday and decided to seek evaluation in the ER. He remained febrile in the ER and was found to have a leukocytosis. He was admitted due to sepsis. He denies any redness or draining at the biopsy site but has so far been declining examination of it. Source: patient Date Seen 07/17/20 Time Seen by a Provider: 09:38 Attending Physician Gretchen Hernandez MD PCP Cait Valdes Referring Physician Date of Admission Jul 16, 2020 at 13:46 Home Medications & Allergies Home Medications Reviewed patient Home Medication Reconciliation performed by pharmacy medication reconciliations lawn technician and/or nursing. Patients Allergies have been reviewed. Allergies Allergies Coded Allergies doxycycline (Verified Allergy, Unknown, 05/12/17) Patient Social History Marrital Status: Tobacco Use?: No Smoking Status: Never a Smoker Use of E-Cig and/or Vaping dev: No E-Cig or Vaping type used: Marijuana E-Cig and/or Vaping Freq: Current Everyday User Substance use?: No Alcohol Use?: Yes Alcohol type: Beer Alcohol Frequency: Once in a while Pt stated abuse/neglect: No Immunizations Up To Date Influenza Vaccine Up-to-Date: Yes; Up-to-Date Second COVID19 Vaccination Edilson: 07/01/2020 Tetanus Booster (TDap): Unknown Date of Pneumonia Vaccine: Dec 21, 2015 Current Status Do you have an Advance Directi: No Communicates: Verbally Primary Language: Lithuanian Preferred Spoken Language: Lithuanian Is interpretation needed?: No Implanted or Applied Medical D: Other Past Medical History Hypothyroidism, R varicocele, left shoulder replacement, HTN, GERD Family Medical History Family Hx: No pertinent family history Review of Systems Constitutional: chills; No diaphoresis; fever, malaise EENTM: no symptoms reported Respiratory: No cough, No short of breath Cardiovascular: No chest pain, No edema, No palpitations Gastrointestinal: nausea, vomiting Genitourinary: see HPI Musculoskeletal: joint pain (shoulder- chronic) Skin: no symptoms reported Psychiatric/Neurological: No Symptoms Reported Physical Exam Physical Exam Vital Signs Vital Signs - First Documented 07/16/20 13:03 Temp 38.2 Pulse 83 Resp 18 B/P (MAP) 149/72 (97) Pulse Ox 98 O2 Delivery Room Air Capillary Refill : Less Than 3 Seconds Height, Weight, BMI Height: 5'9.00" Weight: 190lbs. 9.0oz. 86.143752mq; 26.98 BMI Method:Stated General Appearance: No Apparent Distress, WD/WN HEENT: PERRL/EOMI, Moist Mucous Membranes; No Scleral Icterus (L), No Scleral Icterus (R) Neck: Full Range of Motion, Supple Respiratory: Lungs Clear, No Accessory Muscle Use, No Respiratory Distress Cardiovascular: Regular Rate, Rhythm, No JVD, No Murmur Gastrointestinal: Normal Bowel Sounds, Non Tender, Soft Extremity: No Calf Tenderness, No Pedal Edema Neurologic/Psychiatric: Alert, Oriented x3, Normal Mood/Affect Skin: Normal Color, Warm/Dry Results Results/Procedures Labs Laboratory Tests 07/16/20 13:12 07/17/20 05:59 Patient resulted labs reviewed. Imaging: Reviewed Imaging Report Imaging [facility] [place] NAME: TOMASZ ROSEN [facility] REC#: [id number] PT STATUS: ADM IN : 1950 PHYSICIAN: TIA BYNUM APRN ADMIT DATE: 07/16/20 Signed Date of Exam:07/16/20 CHEST 1 VIEW, AP/PA ONLY INDICATION: Fever. Comparison made with prior examination 05/12/2017. FINDINGS: The heart size is normal. There is minimal discoid atelectasis in lung bases. There is no pleural fusion or pneumothorax. Mediastinum is unremarkable. IMPRESSION: Minimal discoid atelectasis in lung bases otherwise unremarkable. Dictated by: Dictated on workstation # [id number] Dict: 07/16/20 1349 Trans: 07/16/20 1449 [id number] Interpreted by: DANE ESCAMILLA MD Electronically signed by: DANE ESCAMILLA MD 07/16/20 1449 Assessment/Plan Admission Diagnosis Sepsis Admission Status: Inpatient Order (span 2 midnights) Reason for Inpatient Admission: see below Assessment and Plan Sepsis UTI with recent prostate biopsy Leukocytosis improving but remains febrile at times Continue Tylenol, patient declining Motrin Continue on abx but change to cefepime for pseudomonal coverage Discussed with Dr Malin, appreciate recs Await c/s hypothyroidism Continue home synthroid DVT ppx: SCDs Diagnosis/Problems Diagnosis/Problems (1) Hypothyroidism Qualifiers: Hypothyroidism type: unspecified Qualified Codes: E03.9 - Hypothyroidism, unspecified (2) H/O prostate biopsy Status: Acute (3) Sepsis Status: Acute Qualifiers: Sepsis type: sepsis due to unspecified organism Sepsis acute organ dysfu nction status: without acute organ dysfunction Qualified Codes: A41.9 - Sepsis, unspecified organism (4) Urinary tract infection Status: Acute Qualifiers: Urinary tract infection type: site unspecified Hematuria presence: with hematuria Qualified Codes: N39.0 - Urinary tract infection, site not specified; R31.9 - Hematuria, unspecified GRETCHEN HERNANDEZ MD Jul 17, 2020 09:42
[2020-07-17] MEDS: IBUPROFEN 600 MG (MOTRIN) TAB PO PRN ×2 (10:54→20:08)
[2020-07-17] MEDS: LACTOBACILLUS ACIDOPHILUS (PROBIOTIC) CAPSULE PO SCH ×2 (10:58→18:30)
[2020-07-17] MEDS: CEFEPIME INJECTION 1,000 MG in WATER (STERILE) FOR INJECTION 10 ML IV SCH ×2 (10:59→18:40)
[2020-07-17] MEDS: ONDANSETRON 4 MG/2 ML (SDV) Z0FRAN IVP PRN (11:54)
[2020-07-17] MEDS ORDERED: cefTRIAXone 1,000 MG/SWFI 10 ML IV PUSH IV SCH ×2 (14:00)
--- NOTE | 2020-07-17 15:42 | CONSULTATION REPORT ---
DATE OF SERVICE: 07/17/2020 ATTENDING PHYSICIAN: Dr. Hernandez. SUMMARY: A 69-year-old white man, who underwent a prostate biopsy for a PSA of [address] [place] [address] Hernandez on . He presented to the emergency room with fever and infection. He subsequently was admitted, put on Rocephin that was switched to cefepime. He denies any hematuria. No major issues passing urine. His history and physical was reviewed. He did complain of some hydrocele. I examined him and he has had a right mild to moderate hydrocele on the right testicle. He is okay. The patient does not look septic. He did have fever, which is expected for 48 to 72 hours. He is clinically responding well. IMPRESSION: Sepsis secondary to prostate biopsy. Stable. RECOMMENDATIONS: Continue present management. Once he is afebrile for 24 hours, may dismiss home to follow up with his urologist, Dr. Hernandez. This plan was fully explained to him and his . Job ID: [id number] DocumentID: [id number] Dictated Date: 07/17/2020 10:13:29 Gravity Meter Observer Date: 07/17/2020 15:41:38 Dictated By: ARNALDO SPENCER MD
[2020-07-17 15:52] VITALS: BP 109/59
[2020-07-17 19:21] VITALS: BP 120/66
[2020-07-18] MEDS: CEFEPIME INJECTION 1,000 MG in WATER (STERILE) FOR INJECTION 10 ML IV SCH ×4 (00:26→18:10)
[2020-07-18 00:31] VITALS: BP 131/71
[2020-07-18] MEDS: LACTATED RINGERS 1,000 ML IV SCH ×3 (01:56→15:47)
[2020-07-18 04:45] VITALS: BP 146/75
[2020-07-18 05:38] LABS: HEMOGLOBIN 12.3 g/dL (13.3-17.7); MEAN PLATELET VOLUME 9.4 fL (9.0-12.2); WHITE BLOOD COUNT 7.8 10^3/uL (4.3-11.0)
[2020-07-18 06:03] LABS: BUN/CREATININE RATIO 13; CALCIUM 8.2 MG/DL (8.5-10.1); CARBON DIOXIDE 20 MMOL/L (21-32); CHLORIDE 105 MMOL/L (98-107); CREATININE SERUM 0.82 MG/DL (0.60-1.30); GFR ESTIMATED > 60; GLUCOSE 141 MG/DL (70-105); POTASSIUM 3.5 MMOL/L (3.6-5.0); SODIUM 136 MMOL/L (135-145)
[2020-07-18] MEDS: ACETAMINOPHEN 325 MG TABLET PO PRN (07:39)
[2020-07-18] MEDS: LACTOBACILLUS ACIDOPHILUS (PROBIOTIC) CAPSULE PO SCH ×3 (07:39→18:10)
[2020-07-18] MEDS: LEVOTHYROXINE 50 MCG (LEVOTHROID) TAB PO SCH (07:39)
[2020-07-18 08:00] VITALS: BP 119/72
[2020-07-18] MEDS ORDERED: ACET325T38 PO (09:27)
[2020-07-18] MEDS ORDERED: PEG15DRO9 OU (09:27)
[2020-07-18] MEDS ORDERED: FLUT16SP22 NSEACH (09:27)
[2020-07-18] MEDS ORDERED: HYDR-3820 PO (09:27)
[2020-07-18] MEDS ORDERED: LEVO25TA5 PO (09:27)
[2020-07-18] MEDS ORDERED: ASPI-808 PO (09:27)
[2020-07-18] MEDS ORDERED: CALC-250 PO (09:27)
[2020-07-18] MEDS ORDERED: VITA1TAB17 PO (09:27)
[2020-07-18 12:00] VITALS: BP 138/80
[2020-07-18] MEDS: ONDANSETRON 4 MG/2 ML (SDV) Z0FRAN IVP PRN (14:35)
[2020-07-18 16:24] VITALS: BP 133/69
[2020-07-18 20:14] VITALS: BP 129/65
[2020-07-18] MEDS: IBUPROFEN 600 MG (MOTRIN) TAB PO PRN (20:40)
--- NOTE | 2020-07-18 20:55 | Progress Note - Hospitalist ---
Subjective HPI/CC On Admission Date Seen by Provider: Jul 18, 2020 Time Seen by Provider: 09:25 Pt is a 69yoCM with a PMH of hypothyroidism who presented to the ER due to fever. He had a prostate biopsy on 07/14 and completed his cipro prophylaxis but on 07/15 developed a fever and began to feel poorly. He was nauseated and vomited once as well. This continued over night and into yesterday and decided to seek evaluation in the ER. He remained febrile in the ER and was found to have a leukocytosis. He was admitted due to sepsis. He denies any redness or draining at the biopsy site but has so far been declining examination of it. Subjective/Events-last exam He is feeling better today. He reports having some chills overnight. Focused Exam Lactate Level 07/16/20 13:26: Lactic Acid Level 1.47 Objective Exam Vital Signs Vital Signs Date Time Temp Pulse Resp B/P (MAP) Pulse Ox O2 Delivery O2 Flow Rate FiO2 07/18/20 20:14 37.1 63 20 129/65 (86) 96 Room Air Capillary Refill : Less Than 3 Seconds General Appearance: No Apparent Distress, WD/WN Respiratory: Lungs Clear, Normal Breath Sounds, No Respiratory Distress Cardiovascular: Regular Rate, Rhythm, No Edema, No Murmur Gastrointestinal: Normal Bowel Sounds, Non Tender, Soft Extremity: Normal Inspection, Non Tender, No Pedal Edema Neurologic/Psychiatric: Alert, Oriented x3, No Motor/Sensory Deficits, Normal Mood/Affect Skin: Normal Color, Warm/Dry Results/Procedures Lab Laboratory Tests 07/18/20 05:30 Patient resulted labs reviewed. Imaging: Reviewed Imaging Report Assessment/Plan Assessment and Plan Assess & Plan/Chief Complaint UTI Recent prostate biopsy Continue Cefepime Await culture results Dr. Malin consulted, appreciate assistance Hypothyroidism Continue home meds DVT prophylaxis: SCDs, ambulation Sepsis, resolved Diagnosis/Problems Diagnosis/Problems (1) Urinary tract infection Status: Acute Qualifiers: Urinary tract infection type: site unspecified Hematuria presence: with hematuria Qualified Codes: N39.0 - Urinary tract infection, site not specified; R31.9 - Hematuria, unspecified (2) Hypothyroidism Status: Chronic Qualifiers: Hypothyroidism type: unspecified Qualified Codes: E03.9 - Hypothyroidism, unspecified (3) Sepsis Status: Resolved Qualifiers: Sepsis type: sepsis due to unspecified organism Sepsis acute organ dysfunction status: without acute organ dysfunction Qualified Codes: A41.9 - Sepsis, unspecified organism Resolution Date/Time: 07/18/20 @ 20:58 (4) H/O prostate biopsy Status: Acute RENATO SEVERINO MD Jul 18, 2020 20:55
[2020-07-19 00:31] VITALS: BP 108/61
[2020-07-19] MEDS: CEFEPIME INJECTION 1,000 MG in WATER (STERILE) FOR INJECTION 10 ML IV SCH ×2 (00:31→05:55)
[2020-07-19] MEDS: LACTATED RINGERS 1,000 ML IV SCH ×2 (00:31→08:05)
[2020-07-19] MEDS ORDERED: LEVOTHYROXINE 25 MCG (LEVOTHROID) TAB ONE (03:11)
[2020-07-19] MEDS ORDERED: LEVOTHYROXINE 50 MCG (LEVOTHROID) TAB PO SCH (06:00)
[2020-07-19] MEDS ORDERED: LEVOTHYROXINE 25 MCG (LEVOTHROID) TAB PO SCH (06:30)
[2020-07-19 08:04] VITALS: BP 130/60
[2020-07-19] MEDS: LACTOBACILLUS ACIDOPHILUS (PROBIOTIC) CAPSULE PO SCH (08:10)
--- NOTE | 2020-07-19 09:53 | Progress Note - Urology ---
Progress Note-Urology Progress Notes/Assess & Plan Progress/Assessment & Plan DOING, FEELING AND LOOKING WELL. NO FEVER. OK TO DISCHARGE JIMENEZ ON PO ABX AND F/U WITH DR FRANCO Final Diagnosis UROSEPSIS ARNALDO SPENCER MD Jul 19, 2020 09:53
[2020-07-19] MEDS ORDERED: SULF1TAB35 PO (10:09)
[2020-07-19] MEDS ORDERED: TRIM/SULFAMETH 160/800 (SEPTRA DS) TAB PO NR (10:30)
[2020-07-19 11:13] VITALS: BP 130/60
--- NOTE | 2020-07-19 14:01 | Physician Query Clarification ---
Physician Query-General Query to Physician: The medical record reflects the following clinical scenario: The patient, in the setting of History/Risk factors, recent prostate biopsy, clinical Findings UTI: urine culture showing E. coli, urology saying "Sepsis secondary to prostate biopsy", Treatment: Bactrim p.o., cefepime IV, LR 1 L. Question: Can you specify if the UTI is due to/associated with prostate biopsy ? 1. Yes -Urinary tract infection is due to/associated with prostate biopsy 2. No - Urinary tract infection is not due to/associated with prostate biopsy 3. Other, with explanation of the clinical findings 4. Clinically undetermined, no explanation for the clinical findings Please clarify and document your clinical opinion in the Progress Notes and Discharge Summary including the definitive and/or presumptive diagnosis, (suspected or probable), related to the above clinical findings. Please include clinical findings supporting your diagnosis. In responding to this query, please exercise your independent professional judgment. The purpose of this communication is to more accurately reflect the complexity of your patients condition. The fact that a question is asked does not imply that any particular answer is desired or expected. Please remember a lack of response to the above will prompt a phone page by [facility]/coding staff Thank you for timely response to this clarification. Sarah Woodward [phone] PHYSICIAN RESPONSE: Based on the clinical findings in the record, please respond to the query above on this document as an addendum. Physician Response: Physician Response 1 If you have questions please contact: Baker: Ext: Thank you for your time and cooperation. Clinical [place] Folder/Baker This is a permanent part of the medical record SARAH WOODWARD Jul 19, 2020 14:01 RENATO SEVERINO MD Jul 20, 2020 14:23
== END 2020-07-19 11:14 | disposition home or self-care (01) | DRG 863 ==
LOC: EDUNIT# 12:50 → ER 12:54 → 4TH 13:46
PROVIDERS: ADMIT Family Medicine; ATTEND Internal Medicine
DX: T81.44XA Sepsis following a procedure, initial encounter (principal); N39.0 Urinary tract infection, site not specified; I10 Essential (primary) hypertension; K21.9 Gastro-esophageal reflux disease without esophagitis; E03.9 Hypothyroidism, unspecified; F12.99 Cannabis use, unspecified with unspecified cannabis-induced disorder; F17.290 Nicotine dependence, other tobacco product, uncomplicated; Z96.612 Presence of left artificial shoulder joint; Z79.01 Long term (current) use of anticoagulants; Z79.82 Long term (current) use of aspirin; Z79.891 Long term (current) use of opiate analgesic; Z88.1 Allergy status to other antibiotic agents
CPT/HCPCS: 36415; 71045; 80048; 80053; 81000; 83605; 84145; 85007; 85025; 85027; 86141; 87040; 87077; 87088; 87184; 87186; 87324; 87449

== ENCOUNTER → 2021-12-28 | Outpatient (CLI) | payer MEDICARE ==
[~2021-12-28] MED LIST changes: +ACET325T38 PO; +ASPI-808 PO; +CALC-250 PO; +CYCL10TA25 PO; -CYCL10TA9 PO; +FLUT16SP22 NSEACH; +HYDR-3820 PO; +LEVO25TA5 PO; +PEG15DRO9 OU; +SULF1TAB38 PO; +VITA1TAB17 PO
== END ==
LOC: CARD 11:00
PROVIDERS: ATTEND Physician Assistant
DX: I35.1 Nonrheumatic aortic (valve) insufficiency (principal); I10 Essential (primary) hypertension
CPT/HCPCS: 93306

== ENCOUNTER 2022-07-31 17:04 | Emergency (ER) | payer MEDICARE ==
[~2022-07-31] VITALS: Ht 177 cm; Wt 84.3 kg
[2022-07-31 17:26] LABS: BASOPHILS % (AUTO) 1 % (0-10); EOSINOPHILS # (AUTO) 0.1 10^3/uL (0.0-0.3); EOSINOPHILS % (AUTO) 2 % (0-10); HEMATOCRIT 38 % (40-54); HEMOGLOBIN 13.1 g/dL (13.3-17.7); LYMPHOCYTES # (AUTO) 2.2 10^3/uL (1.0-4.0); LYMPHOCYTES % (AUTO) 39 % (12-44); MEAN CORPUSCULAR HEMOGLOBIN 33 pg (25-34); MEAN CORPUSCULAR HGB CONC 35 g/dL (32-36); MEAN CORPUSCULAR VOLUME 96 fL (80-99); MEAN PLATELET VOLUME 8.8 fL (9.0-12.2); MONOCYTES # (AUTO) 0.6 10^3/uL (0.0-1.0); MONOCYTES % (AUTO) 11 % (0-12); NEUTROPHILS # (AUTO) 2.7 10^3/uL (1.8-7.8); NEUTROPHILS % (AUTO) 47 % (42-75); PLATELET COUNT 170 10^3/uL (130-400); WHITE BLOOD COUNT 5.6 10^3/uL (4.3-11.0)
--- NOTE | 2022-07-31 17:36 | ED Chest Pain ---
General Chief Complaint: Chest Pain Stated Complaint: PPAIN IN CHEST / HIGH BP Nursing Triage Note: PT PRESENTS TO ED VIA POV FROM HOME WITH COMPLAINTS OF L SIDED CP THAT HAS BEEN ON AND OFF FOR A COUPLE DAYS. 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 PT DENIES SOA. PT DOES REPORT RECENT DECREASED APPETITE. Source: patient Exam Limitations: no limitations History of Present Illness Date Seen by Provider: Jul 31, 2022 Time Seen by Provider: 17:20 Initial Comments This 71-year-old gentleman presents to the emergency room with primary complaint of chest pain. He arrives by private vehicle and is accompanied by his . He was performing some fairly aggressive manual labor on his property today cleaning up branches and logs and throwing them into the fire. He felt lightheaded and dizzy. He went in and checked his blood pressure and found blood pressures to be 155/110 and 160/125. He has had some mild chest pain intermittently over the past week, but he is uncertain if that is due to mechanical irritation and physical strain. He has chronic bilateral shoulder pain that convolutes his interpretation of pain through the chest and shoulder girdle. He has had a loop recorder placed due to history of cryptogenic stroke. He saw Dr. Baker for that. The loop recorder is no longer functional. He reports no arrhythmias were ever detected. He reports generally feeling sore for over a week. He has been on Bactrim for about a week for UTI. He thought maybe the Bactrim was causing his symptoms and requested a change of antibiotic from his doctor. That was changed to nitrofurantoin today but he has not started nitrofurantoin yet. He has history of hypothyroidism and takes levothyroxine. His only other medication is aspirin 325 mg daily. He had an episode of vomiting 2 days ago but is not experiencing nausea or vomiting at this time. He reports a tick bite on the right arm about a week ago as well. He had some minor erythema and swelling of the area which has largely improved. He denies any fever but he has felt shaky recently and has a mild tremor during my evaluation. His EKG was unremarkable during assessment. He has had muscle cramps recently as well. He has a prostate biopsy scheduled at [place] next week. Allergies and Home Medications Allergies Coded Allergies: doxycycline (Verified Allergy, Unknown, 05/12/17) Patient Home Medication List Home Medication List Reviewed: Yes Acetaminophen (Tylenol) 325 Mg Tablet, 650 MG PO Q6H PRN for PAIN-MILD (1-4), (Reported) Entered as Reported by: PATRICE VERA on 07/18/20926 Aspirin (Aspirin) 325 Mg Tablet, 325 MG PO DAILY, (Reported) Entered as Reported by: PATRICE VERA on 07/18/20926 Cholecalciferol (Vitamin D3) (Vitamin D3) 125 Mcg Tablet, 125 MCG PO DAILY, (Reported) Entered as Reported by: PATRICE VERA on 07/18/20926 Fluticasone Propionate (Fluticasone Propionate) 16 Gm [place].susp, 1 SPRAY NSEACH DAILY PRN for ALLERGIES, (Reported) Entered as Reported by: PARTICE VERA on 07/18/20926 Hydrocodone/Acetaminophen (Hydrocodone-Acetamin 10-325 mg) 1 Each Tablet, 1 EACH PO Q8H PRN for PAIN-MODERATE (5-7), (Reported) Entered as Reported by: PATRICE VERA on 07/18/20926 Levothyroxine Sodium (Levothyroxine Sodium) 25 Mcg Tablet, 25 MCG PO 0300, (Reported) Entered as Reported by: PATRICE VERA on 07/18/20926 Peg 400/Hypromellose/Glycerin (Visine Dry Eye Relief Drop) 15 Ml Drops, 1-2 DROPS OU DAILY PRN for DRY EYES, (Reported) Entered as Reported by: PATRICE VERA on 07/18/20926 Sulfamethoxazole/Trimethoprim (Bactrim Ds Tablet) 1 Each Tablet, 1 EACH PO BID Prescribed by: RENATO SEVERINO on 07/19/20 1009 Vitamin B Complex (Vitamin B Complex) 1 Each Tablet, 1 EACH PO DAILY, (Reported) Entered as Reported by: PATRICE VERA on 07/18/20926 Review of Systems Review of Systems Constitutional: see HPI EENTM: No Symptoms Reported Respiratory: No Symptoms Reported Cardiovascular: See HPI Gastrointestinal: See HPI Genitourinary: No Symptoms Reported Musculoskeletal: see HPI Skin: see HPI Psychiatric/Neurological: See HPI Endocrine: No Symptoms Reported Hematologic/Lymphatic: No Symptoms Reported Past Gzjsfax-Blsqaa-Hlorui Hx Patient Social History Tobacco Use?: No Substance use?: No Alcohol Use?: Yes Alcohol Frequency: Rarely Pt feels they are or have been: No Immunizations Up To Date First/Initial COVID19 Vaccinat: 07/01/2020 Second COVID19 Vaccination [place]: 07/01/2020 Third COVID19 Vaccination Date: 07/01/2020 Seasonal Allergies Seasonal Allergies: No Past Medical History Surgery/Hospitalization HX: HYPOTHYROIDISM, Surgeries: Yes (L SHOULDER REPLACEMENT, loop recorder) Joint Replacement, Orthopedic Respiratory: No Cardiac: Yes (CLEAN HEART CATH IN 2010) Hypertension Neurological: Yes Stroke Reproductive Disorders: No Genitourinary: No Gastrointestinal: Yes Gastroesophageal Reflux Musculoskeletal: Yes Degenerate Disk Disease Endocrine: Yes Hypothyroidsim Cancer: No Psychosocial: No Integumentary: No Blood Disorders: No Adverse Reaction/Blood Tranf: No Family Medical History No Pertinent Family Hx No pertinent family history Physical Exam Vital Signs Vital Signs - First Documented 07/31/22 07/31/22 17:12 20:40 Temp 36.4 Pulse 14 Resp 16 B/P (MAP) 143/103 (116) Pulse Ox 96 O2 Delivery Room Air Capillary Refill : Less Than 3 Seconds Height, Weight, BMI Height: 5'9.00" Weight: 190lbs. 9.0oz. 86.125469jm; 26.00 BMI Method:Stated General Appearance: No Apparent Distress, WD/WN HEENT: PERRL/EOMI, Normal ENT Inspection, Other (Oropharynx somewhat dry) Neck: Normal Inspection; No JVD Respiratory: Lungs Clear, Normal Breath Sounds, No Accessory Muscle Use Cardiovascular: Regular Rate, Rhythm, No Edema, No Murmur Gastrointestinal: Non Tender, Soft Extremity: Normal Inspection, Non Tender, No Pedal Edema Neurologic/Psychiatric: Alert, Oriented x3, No Motor/Sensory Deficits, Normal Mood/Affect, Other (Slight tremor of the upper extremities) Skin: Warm/Dry, Rash (Erythema at the site of a tick bite of the right forearm with some very faint erythema of the surrounding skin for several centimeters.) Progress/Results/Core Measures Results/Orders Lab Results Laboratory Tests Test 07/31/22 17:19 07/31/22 18:10 07/31/22 19:45 Range/Units White Blood Count 5.6 4.3-11.0 10^3/uL Red Blood Count 3.92 L 4.30-5.52 10^6/uL Hemoglobin 13.1 L 13.3-17.7 g/dL Hematocrit 38 L 40-54 % Mean Corpuscular Volume 96 80-99 fL Mean Corpuscular Hemoglobin 33 25-34 pg Mean Corpuscular Hemoglobin Concent 35 32-36 g/dL Red Cell Distribution Width 13.3 10.0-14.5 % Platelet Count 170 130-400 10^3/uL Mean Platelet Volume 8.8 L 9.0-12.2 fL Immature Granulocyte % (Auto) 0 % Neutrophils (%) (Auto) 47 42-75 % Lymphocytes (%) (Auto) 39 12-44 % Monocytes (%) (Auto) 11 0-12 % Eosinophils (%) (Auto) 2 0-10 % Basophils (%) (Auto) 1 0-10 % Neutrophils # (Auto) 2.7 1.8-7.8 10^3/uL Lymphocytes # (Auto) 2.2 1.0-4.0 10^3/uL Monocytes # (Auto) 0.6 0.0-1.0 10^3/uL Eosinophils # (Auto) 0.1 0.0-0.3 10^3/uL Basophils # (Auto) 0.0 0.0-0.1 10^3/uL Immature Granulocyte # (Auto) 0.0 0.0-0.1 10^3/uL Prothrombin Time 14.6 12.2-14.7 SEC INR Comment 1.1 0.8-1.4 Activated Partial Thromboplast Time 31 24-35 SEC Sodium Level 139 135-145 MMOL/L Potassium Level 3.7 3.6-5.0 MMOL/L Chloride Level 110 H 98-107 MMOL/L Carbon Dioxide Level 19 L 21-32 MMOL/L Anion Gap 10 5-14 MMOL/L Blood Urea Nitrogen 18 7-18 MG/DL Creatinine 0.88 0.60-1.30 MG/DL Estimat Glomerular Filtration Rate 91 BUN/Creatinine Ratio 20 Glucose Level 126 H 70-105 MG/DL Calcium Level 8.7 8.5-10.1 MG/DL Corrected Calcium 8.7 8.5-10.1 MG/DL Magnesium Level 1.9 1.6-2.4 MG/DL Total Bilirubin 0.5 0.1-1.0 MG/DL Aspartate Amino Transf (AST/SGOT) 65 H 5-34 U/L Alanine Aminotransferase (ALT/SGPT) 95 H 0-55 U/L Alkaline Phosphatase 55 40-136 U/L Myoglobin 171.7 H 10.0-92.0 NG/ML Troponin I < 0.028 < 0.028 <0.028 NG/ML C-Reactive Protein High Sensitivity 0.05 0.00-0.50 MG/DL Total Protein 6.5 6.4-8.2 GM/DL Albumin 4.0 3.2-4.5 GM/DL Thyroid Stimulating Hormone (TSH) 2.64 0.35-4.94 UIU/ML Free Thyroxine 0.83 0.70-1.48 NG/DL Lyme Disease Screen IgG & IgM Ab 0.15 0.00-0.89 Index Lyme Antibody Interpretation Negative Negative Ehrlichia chaffeensis IgG Antibody <1:16 <1:16 Ehrlichia chaffeensis IgM Antibody <1:10 <1:10 Spotted Fever Group IgG Antibody <1:16 <1:16 Spotted Fever Group IgM Antibody <1:10 <1:10 [place] Antibody <1:20 Urine Color YELLOW Urine Clarity CLEAR Urine pH 6.0 5-9 Urine Specific [place] 1.025 H 1.016-1.022 Urine Protein NEGATIVE NEGATIVE Urine Glucose (UA) NEGATIVE NEGATIVE Urine Ketones NEGATIVE NEGATIVE Urine Nitrite NEGATIVE NEGATIVE Urine Bilirubin NEGATIVE NEGATIVE Urine Urobilinogen 0.2 < = 1.0 MG/DL Urine Leukocyte Esterase NEGATIVE NEGATIVE Urine RBC (Auto) NEGATIVE NEGATIVE Urine RBC NONE /HPF Urine WBC 0-2 /HPF Urine Squamous Epithelial Cells RARE /HPF Urine Crystals NONE /LPF Urine Bacteria TRACE /HPF Urine Casts NONE /LPF Urine Mucus SMALL H /LPF Urine Culture Indicated NO My Orders Orders - BARB HEAD MD Ekg Tracing (07/31/22 17:12) Cbc With Automated Diff (07/31/22 17:20) Magnesium (07/31/22 17:20) Chest 1 View, Ap/Pa Only (07/31/22 17:20) Comprehensive Metabolic Panel (07/31/22 17:20) Myoglobin Serum (07/31/22 17:20) Protime With Inr (07/31/22 17:20) Partial Thromboplastin Time (07/31/22 17:20) O2 (07/31/22 17:20) Monitor-Rhythm Ecg Trace Only (07/31/22 17:20) Ed Iv/Invasive Line Start (07/31/22 17:20) Troponin I Bee (07/31/22 17:20) Hs C Reactive Protein (07/31/22 17:29) Thyroid Stimulating Hormone (07/31/22 17:29) Ua Culture If Indicated (07/31/22 17:29) Free T4 (Free Thyroxine) (07/31/22 17:29) Tick Panel With Lyme Eia (07/31/22 17:42) Troponin I Bee (07/31/22 19:40) Vital Signs/I&O 07/31/22 07/31/22 17:12 20:40 Temp 36.4 Pulse 14 68 Resp 16 20 B/P (MAP) 143/103 (116) 141/75 Pulse Ox 96 100 O2 Delivery Room Air Blood Pressure Mean: 116 Progress Progress Note #1: Time: 17:39 Progress Note Patient was interviewed and examined. He has a rather vague constellation of numerous symptoms. Vital signs are unremarkable at this time with blood pressure of 140/84 and no fever. Labs are pending. Due to the tick bite that occurred about a week ago a tick panel will be obtained as well. We will recheck his urine to ensure he does not have a persistent urinary tract infection. Further work-up and treatment will be pending based on results of current labs. Progress Note #2: Progress Note Cardiac panel including CMP, CBC, Mag, Troponin and coag studies were unrema rkable aside from mild transaminase elevation. TSH and Free T4 were normal indicating well regulated thyroid function. CRP and WBC were normal making bacterial infection less likely. Repeat troponin was negative. ECG demonstrated no ischemic changes or arrhythmias. All of these studies were reviewed and interpreted in their entirety by me. Chest x-ray report was reviewed. Symptoms improved without any treatment. He was free of chest pain at discharge. He will need to follow-up on the Tick Panel results. No treatment for tickborne disease is being given at this time due to doxycycline allergy and lack of infectious indicators in labs and vital signs. Initial ECG Impression Date: Jul 31, 2022 Initial ECG Impression Time: 17:12 Initial ECG Rate: 70 Initial ECG Rhythm: Normal Sinus Initial ECG Intervals: Normal Initial ECG Impression: Normal Comment Normal sinus rhythm with no ST elevation or depression. No abnormal intervals or axis deviation. Diagnostic Imaging Diagonstic Imaging: Xray Plain Films/CT/US/NM/MRI: chest Comments NAME: TOMASZ [facility] REC#: [id number] PT STATUS: REG ER : 1950 PHYSICIAN: BARB HEAD MD ADMIT DATE: 07/31/22/ER Signed Date of Exam:07/31/22 CHEST 1 VIEW, AP/PA ONLY INDICATION: Chest pain. Time of Exam: 5:35 PM Correlation is made with prior chest of 07/16/2020. Heart size normal. Cardiac loop recorder overlies the left chest. There is some linear atelectasis or scarring left lung base. No infiltrates are seen. There is no effusion or pneumothorax. IMPRESSION: No acute cardiopulmonary process is detected. Dictated by: Dictated on workstation # [id number] Dict: 07/31/228 Trans: 07/31/221899 [facility] [id number] Interpreted by: DOUG NAIR MD Electronically signed by: DOUG NAIR MD 07/31/221899 Departure Impression Primary Impression: Atypical chest pain Additional Impressions: Tick bite Qualified Codes: S50.861A - Insect bite (nonvenomous) of right forearm, initial encounter; W57.XXXA - Bitten or stung by nonvenomous insect and other nonvenomous arthropods, initial encounter Lightheadedness Disposition: 01 HOME, SELF-CARE Condition: Improved Departure-Patient Inst. Decision time for Depature: 19:48 Referrals: CHIQUIS HOPKINS (PCP/Family) Primary Care Physician Patient Instructions: Chest Pain, Adult ED Add. Discharge Instructions: Follow-up with Dr. Baker and your primary care provider soon as possible. Please call tomorrow to make appointments. Please have your primary care provider follow-up on your tick lab results in 3 or 4 days. If the office is closed, you may contact the ER or call your doctors office on Saturday. Avoid overexertion, especially during times of stress. Continue to drink plenty of clear liquids to stay well-hydrated. For body aches and pains you may take Tylenol (acetaminophen) up to 1000 mg every 6 hours as needed. You may add ibuprofen 400 mg 2 or 3 times a day if needed for additional pain relief. Return to the ER if you have worsening symptoms despite following these instructions. All discharge instructions reviewed with patient and/or family. Voiced understanding. BARB HEAD MD Jul 31, 2022 17:36
[2022-07-31 17:46] LABS: POTASSIUM 3.7 MMOL/L (3.6-5.0)
[2022-07-31 17:48] LABS: CALCIUM 8.7 MG/DL (8.5-10.1); INR 1.1 (0.8-1.4); PROTHROMBIN TIME PATIENT 14.6 SEC (12.2-14.7)
[2022-07-31 17:49] LABS: TOTAL PROTEIN 6.5 GM/DL (6.4-8.2)
[2022-07-31 17:51] LABS: BILIRUBIN,TOTAL 0.5 MG/DL (0.1-1.0)
[2022-07-31 17:52] LABS: CREATININE SERUM 0.88 MG/DL (0.60-1.30)
[2022-07-31 17:55] LABS: MAGNESIUM 1.9 MG/DL (1.6-2.4)
--- NOTE | 2022-07-31 18:01 | Diagnostic Imaging Report ---
INDICATION: Chest pain. Time of Exam: 5:35 PM Correlation is made with prior chest of 07/16/2020. Heart size normal. Cardiac loop recorder overlies the left chest. There is some linear atelectasis or scarring left lung base. No infiltrates are seen. There is no effusion or pneumothorax. IMPRESSION: No acute cardiopulmonary process is detected. Dictated by: Dictated on workstation # [id number]
[2022-07-31 18:18] LABS: FREE T4 (FREE THYROXINE) 0.83 NG/DL (0.70-1.48)
[2022-07-31 18:38] LABS: BILIRUBIN,URINE NEGATIVE (NEGATIVE); CLARITY,URINE CLEAR; COLOR,URINE YELLOW; GLUCOSE, URINE (UA) NEGATIVE (NEGATIVE); KETONES,URINE NEGATIVE (NEGATIVE); LEUKOCYTE ESTERASE ,URINE NEGATIVE (NEGATIVE); NITRITE,URINE NEGATIVE (NEGATIVE); PROTEIN,URINE NEGATIVE (NEGATIVE)
[2022-07-31 18:55] LABS: BACTERIA,URINE TRACE /HPF; SQUAMOUS EPITHELIAL CELL,UR RARE /HPF; WBC,URINE 0-2 /HPF
[2022-07-31 20:40] VITALS: BP 141/75
== END 2022-07-31 20:40 | disposition home or self-care (01) ==
LOC: EDUNIT# 17:04 → ER 17:07
DX: S50.861A Insect bite (nonvenomous) of right forearm, initial encounter (principal); R07.89 Other chest pain; R42 Dizziness and giddiness; E03.9 Hypothyroidism, unspecified; Z79.890 Hormone replacement therapy; Z79.82 Long term (current) use of aspirin; W57.XXXA Bitten or stung by nonvenomous insect and other nonvenomous arthropods, initial encounter
CPT/HCPCS: 36415; 71045; 80053; 81000; 83735; 83874; 84439; 84443; 84484; 85025; 85610; 85730; 86141; 86618; 86666; 86668; 86757; 93005; 93041

== ENCOUNTER → 2022-09-05 | Outpatient (CLI) | payer MEDICARE | LOC: CARD 10:00 | PROVIDERS: ATTEND Internal Medicine Cardiovascular Disease | DX: I10 Essential (primary) hypertension (principal) | CPT/HCPCS: C8929; C8930; 93306 ==